=== PATIENT | male | born 1970 | race Caucasian/White ===

== ENCOUNTER 2017-05-01 16:50 | Emergency (ER) | payer SELFPAY ==
--- NOTE | 2017-05-01 17:26 | RAD ---
RADIOGRAPH CHEST 2 VIEWS: HISTORY: 47-year-old male with hypertension and cough. FINDINGS: There is no air space density, pulmonary edema, pleural effusion, pneumothorax, or cardiomegaly. IMPRESSION: No acute cardiopulmonary findings. jn [] POS: [facility]
[2017-05-01 18:24] LABS: ALT (SGPT) 162 U/L (8-55); AST (SGOT) 142 U/L (5-34); Alkaline Phosphatase 107 U/L (40-150); Anion Gap 14 mmol/L (10-20); BUN (Urea Nitrogen) 11 mg/dL (8.9-20.6); Bilirubin, Total 0.7 mg/dL (0.2-1.2); Calc. Creatinine Clearance 0 mL/min (70-130); Carbon Dioxide 24 mmol/L (22-29); Chloride 96 mmol/L (98-107); Estimated GFR-MDRD 71; Globulin 3.4 g/dL (2.4-3.5); Protein, Total 7.5 g/dL (6.0-8.3)
[2017-05-01 18:35] LABS: Hematocrit 52.5 % (42.0-52.0); Mean Platelet Volume 7.3 fL (7.4-10.4); Red Blood Cell (RBC) Count 5.37 mill/uL (4.70-6.10)
[2017-05-01] MEDS ORDERED: Acetaminophen 500 MG TAB ONE (18:35)
[2017-05-01] MEDS ORDERED: Ketorolac Tromethamine 30 MG/ML VIAL ONE (18:35)
[2017-05-01 18:36] LABS: Band 14 % (5-11); Neutrophil 52 % (42-75); Reactive Lymphocytes 5 % (0-10)
== END 2017-05-01 18:59 | disposition home or self-care (01) ==
LOC: ERS 16:50
DX: J11.1 Influenza due to unidentified influenza virus with other respiratory manifestations (principal); I10 Essential (primary) hypertension
CPT/HCPCS: 36415; 71020; 80053; 85025; 96372; J1885

== ENCOUNTER 2018-04-22 10:39 | Emergency (ER) | payer SELFPAY ==
[2018-04-22] MEDS ORDERED: HYDROcodone/Acetaminophen 5/325 mg Tablet ONE (12:46)
--- NOTE | 2018-04-22 13:28 | RAD ---
2 VIEWS LEFT ANKLE: Date: 04/22/18 PROVIDED CLINICAL HISTORY: Left ankle pain status post injury. FINDINGS: There is no evidence for fracture or other acute osseous abnormality. If there is persistent clinical concern, conservative management and follow-up imaging are advised. IMPRESSION: As above. POS: OFF
--- NOTE | 2018-04-22 13:33 | RAD ---
RIGHT ANKLE 2 VIEWS: Date: 04/22/18 PROVIDED CLINICAL HISTORY: Right ankle pain status post injury. FINDINGS: There is no evidence for fracture or other acute osseous abnormality. If there is persistent clinical concern, conservative management and follow-up imaging are advised. IMPRESSION: As above. POS: OFF
== END 2018-04-22 13:11 | disposition home or self-care (01) ==
LOC: ERS 10:39
DX: S93.401A Sprain of unspecified ligament of right ankle, initial encounter (principal); S93.402A Sprain of unspecified ligament of left ankle, initial encounter; W17.89XA Other fall from one level to another, initial encounter

== ENCOUNTER 2018-08-12 19:01 | Emergency (ER) | payer SELFPAY ==
[2018-08-12] MEDS ORDERED: Bacitracin Zinc 1 Packet ONE (20:14)
== END 2018-08-12 20:20 | disposition home or self-care (01) ==
LOC: ERS 19:01
DX: S51.812A Laceration without foreign body of left forearm, initial encounter (principal); W22.8XXA Striking against or struck by other objects, initial encounter
CPT/HCPCS: 12002

== ENCOUNTER 2019-11-29 17:23 | Emergency (ER) | payer SELFPAY ==
[~2019-11-29 17:23] MED LIST: Iopamidol-370 76% 500 ML 1 ML ONE
[2019-11-29 19:06] LABS: #Basophils 0.1 thou/uL (0.0-0.2); #Lymphocytes 1.7 thou/uL (1.20-3.40); #Monocytes 0.4 thou/uL (0.11-0.59); #Neutrophils 3.1 thou/uL (1.40-6.50); %Basophils 1.1 % (0.0-1.0); %Eosinophils 0.9 % (0.0-10.0); %Lymphocytes 31.3 % (21.0-51.0); %Monocytes 7.8 % (0.0-10.0); Hemoglobin 16.1 g/dL (14.0-18.0); Mean Corpuscular HGB CONC 33.7 g/dL (32.0-36.0); Mean Corpuscular Hemoglobin 32.9 pg (27.0-31.0); Mean Corpuscular Volume 97.9 fL (78.0-98.0); Mean Platelet Volume 6.9 fL (7.4-10.4); Platelet Count 245 thou/uL (130-400); RBC Distribution Width 12.5 % (11.5-14.5); Red Blood Cell (RBC) Count 4.89 mill/uL (4.70-6.10); White Blood Cell (WBC) Count 5.3 thou/uL (4.8-10.8)
[2019-11-29 19:20] LABS: ALT (SGPT) 317 U/L (8-55); AST (SGOT) 293 U/L (5-34); Albumin 4.8 g/dL (3.5-5.0); Alcohol 347 mg/dL (Less than 10); Alkaline Phosphatase 128 U/L (40-110); Anion Gap 20 mmol/L (10-20); BUN (Urea Nitrogen) 11 mg/dL (8.9-20.6); Bilirubin, Total 0.9 mg/dL (0.2-1.2); Calc. Creatinine Clearance 0 mL/min (70-130); Calcium 9.8 mg/dL (7.8-10.44); Carbon Dioxide 23 mmol/L (22-29); Chloride 100 mmol/L (98-107); Estimated GFR-MDRD Greater than 90; Globulin 3.5 g/dL (2.4-3.5); Glucose 66 mg/dL (70-105); Lipase 24 U/L (8-78); Potassium 4.3 mmol/L (3.5-5.1); Protein, Total 8.3 g/dL (6.0-8.3); Sodium 139 mmol/L (136-145)
--- NOTE | 2019-11-29 19:28 | CT ---
CT ABDOMEN AND PELVIS PERFORMED WITH CONTRAST ENHANCEMENT: 11/29/19 HISTORY: Right flank pain radiating to right groin and testicle region. The lung bases show some atelectatic change. There are marked diffuse fatty changes of the liver which measures 16 cm. the spleen and pancreas reg ions are unremarkable. Gallbladder has been removed. Right and left adrenal glands and right and left kidneys are normal in appearance. There is no signif icant periaortic or mesenteric adenopathy. CT OF PELVIS PERFORMED WITH CONTRAST ENHANCEMENT: Minimal sigmoid diverticulosis is noted. The appendix appears unremarkable. No adenopathy or mass. No free fluid. Prostate is mildly prominent with prostatic calcifications. There are arthritic changes of the spine with marked disc narrowing at L5-S1. IMPRESSION: 1. Mild colonic diverticulosis. 2. No acute findings of the abdomen or pelvis. 3. Severe fatty change of the liver and postop cholecystectomy change. POS: [facility]
--- NOTE | 2019-11-29 19:29 | RAD ---
RIGHT HIP TWO VIEWS: 11/29/19 HISTORY: Right hip pain status post fall off of a horse. Contrast from a recent CT is present. I do not see any signs of fracture or dislocation. IMPRESSION: No evidence of fracture. POS: [facility]
--- NOTE | 2019-11-29 20:05 | ULT ---
TESTICULAR ULTRASOUND: 11/29/19 HISTORY: Right testicular pain and right groin pain. FINDINGS: Both testicles have a normal sonographic appearance. Color Doppler and spectral analysis demonstrates normal and equal blood flow to both testicles. Epididymi appear normal. No significant hydrocele. IMPRESSION: Unremarkable testicular ultrasound. POS: [facility]
[2019-11-29 21:40] LABS: Bilirubin Negative (Negative); Blood, Urine Negative (Negative); Clarity Clear (Clear); Glucose, Urine (Dipstick) Normal (Negative); Ketone, Urine 20 mg/dL (Negative); Leukocyte Negative Leu/uL (Negative); Nitrite Negative (Negative); Protein, Urine (Dipstick) 10 mg/dL (Neg-Trace); Urobilinogen Normal mg/dL (Less than 2); pH, Urine 5.5 (5.0-9.0)
[2019-11-29 21:42] LABS: Specific Gravity, Urine Greater than 1.060 (1.002-1.036)
== END 2019-11-29 21:08 | disposition home or self-care (01) ==
LOC: ERS 17:23
DX: K70.10 Alcoholic hepatitis without ascites (principal); I10 Essential (primary) hypertension; Z79.899 Other long term (current) drug therapy
CPT/HCPCS: 36415; 74177; 76870; 80053; 80307; 81003; 83690; 85025; 93976; Q9967

== ENCOUNTER 2019-12-09 20:38 | Inpatient (IN) | payer OTHER, SELFPAY ==
[2019-12-09 21:31] LABS: Hemoglobin 16.2 g/dL (14.0-18.0); Mean Corpuscular Hemoglobin 33.5 pg (27.0-31.0); Mean Corpuscular Volume 98.3 fL (78.0-98.0); Mean Platelet Volume 7.7 fL (7.4-10.4); Platelet Count 154 thou/uL (130-400); RBC Distribution Width 12.6 % (11.5-14.5); Red Blood Cell (RBC) Count 4.85 mill/uL (4.70-6.10); White Blood Cell (WBC) Count 4.9 thou/uL (4.8-10.8)
[2019-12-09] MEDS ORDERED: Lorazepam 2 MG/ML VIAL ONE (21:39)
[2019-12-09] MEDS ORDERED: Magnesium 2 GM/50 ML BAG (IN WATER) ONE (21:39)
[2019-12-09 21:48] LABS: ALT (SGPT) 266 U/L (8-55); AST (SGOT) 209 U/L (5-34); Albumin 4.9 g/dL (3.5-5.0); Alkaline Phosphatase 136 U/L (40-110); Anion Gap 18 mmol/L (10-20); BUN (Urea Nitrogen) 14 mg/dL (8.9-20.6); Calc. Creatinine Clearance 0 mL/min (70-130); Calcium 11.1 mg/dL (7.8-10.44); Carbon Dioxide 25 mmol/L (22-29); Chloride 94 mmol/L (98-107); Estimated GFR-MDRD 73; Globulin 3.6 g/dL (2.4-3.5); Glucose 166 mg/dL (70-105); Lymphocytes 14 % (21-51); MDiff Complete? YES; Monocytes 7 % (0-10); Neutrophil 79 % (42-75); Platelet Morphology Comment Appears Adequate; Potassium 3.4 mmol/L (3.5-5.1); Protein, Total 8.5 g/dL (6.0-8.3); RBC Morphology Normal; Sodium 134 mmol/L (136-145)
--- NOTE | 2019-12-09 21:57 | CT ---
CT HEAD WITHOUT CONTRAST: 12/09/19 INDICATIONS: Seizures. Ventricles have normal size and position. No evidence of intracranial mass, hemorrhage, or infarct. S inuses and mastoids are clear. IMPRESSION: No acute process. POS: [facility]
[2019-12-09 21:58] LABS: Alcohol Less than 10 mg/dL (Less than 10); Magnesium 1.7 mg/dL (1.6-2.6)
[2019-12-09] MEDS ORDERED: hydrALAZINE 20 MG/ML VIAL SLOW IVP PRN (23:24)
[2019-12-09] MEDS ORDERED: Lorazepam 2 MG/ML VIAL SLOW IVP PRN (23:24)
[2019-12-09] MEDS ORDERED: Ondansetron PF 4 MG/2 ML Vial IVP PRN (23:24)
[2019-12-09] MEDS ORDERED: Labetalol HCl 100 MG/20 ML VIAL SLOW IVP PRN (23:24)
[2019-12-09] MEDS ORDERED: Acetaminophen 500 MG TAB PO PRN (23:24)
[2019-12-09] MEDS ORDERED: Ondansetron ODT 4 MG TAB PO PRN (23:24)
[2019-12-09] MEDS ORDERED: Diazepam 5 MG TAB PO PRN (23:33)
[2019-12-09] MEDS ORDERED: Diazepam 5 MG TAB PO SCH (23:59)
[2019-12-09] MEDS ORDERED: Potassium Chloride 20 MEQ TAB PO SCH (23:59)
[2019-12-09] MEDS ORDERED: Thiamine HCl 200 MG/2 ML VIAL IM SCH (23:59)
[2019-12-10 00:41] LABS: Lactic Acid 1.1 mmol/L (0.5-2.2)
--- NOTE | 2019-12-10 01:39 | HP ---
PRIMARY CARE PROVIDER: Dr. Paxton Abernathy. CHIEF COMPLAINT: Seizure activity. HISTORY OF PRESENT ILLNESS: This is a 49-year-old male, who presents to [facility] Emergency Department after apparently sustaining seizure-like activity while assisting his son work on a hand spray operator. The history is obtained after discussions with the patient as well as the emergency room attending and review of the electronic medical record. The patient states he has no specific recollection and no premonition or aura prior to the event. The patient apparently was working with his son outside when he fell over next to a vehicle and began having seizure-like activity. The patient was apparently not breathing well and the son started CPR with successful return of consciousness. The patient was held back inside his son's home and EMS was notified. The patient does have a significant history of alcohol abuse. Recently evaluated at [facility] Emergency Room on 11/30/2019, diagnosed with alcoholic hepatitis. The patient states his last drink was within the last week, but has noted some shaking of his hands. The patient denies any new medication exposure and states he takes lisinopril for high blood pressure. In the emergency room, the patient underwent general evaluation including CT of the brain showing no acute process. The patient received magnesium sulfate, lorazepam, and intravenous normal saline x1 L. The patient states he feels back to baseline without specific chest pain, shortness of breath, fever, chills, or dysuria. Last oral intake was approximately 12 hours prior to this evaluation. PAST MEDICAL HISTORY: 1. Hypertension. 2. Gastroesophageal reflux. 3. Alcohol abuse. 4. Alcohol-induced hepatitis. 5. History of epididymitis. PAST SURGICAL HISTORY: Status post laparoscopic cholecystectomy. CURRENT MEDICATIONS: Lisinopril 5 mg p.o. daily. ALLERGIES: NO KNOWN DRUG ALLERGIES. FAMILY HISTORY: No inheritable disease per patient's report. SOCIAL HISTORY: Resides in [place], [place]. Works as a rancher. . Drinks greater than 5 beers per day. No tobacco or illicit drug use. Functional of all activities of daily living. REVIEW OF SYSTEMS: CONSTITUTIONAL: Negative for weight loss or gain, ability to conduct usual activities. SKIN: Negative for rash, itching. EYES: Negative for double vision, pain. ENT/MOUTH: Negative for nose bleeding, neck stiffness, pain, tenderness. CARDIOVASCULAR: Negative for palpitations, dyspnea on exertion, orthopnea. RESPIRATORY: Negative for shortness of breath, wheezing, cough, hemoptysis, fever or night sweats. GASTROINTESTINAL: Negative for poor appetite, abdominal pain, heartburn, nausea, vomiting, constipation, or diarrhea. GENITOURINARY: Negative for urgency, frequency, dysuria, nocturia. MUSCULOSKELETAL: Negative for pain, swelling. NEUROLOGIC/PSYCHIATRIC: Negative for anxiety, depression. ALLERGY/IMMUNOLOGIC: Negative for skin rash, bleeding tendency. Otherwise negative except as stated per HPI. PHYSICAL EXAMINATION: VITAL SIGNS: On admission, blood pressure 140/87, pulse 109, respiratory rate 20, temperature 97.9 degrees Fahrenheit, height O2 saturation 98% on room air. GENERAL APPEARANCE: This is a 49-year-old male, alert and oriented x3, pleasant, responsive, in no acute distress. HEENT: Pupils are equal, round, reactive to light and accommodation. Extraocular muscles are intact. No scleral icterus. No conjunctival injection. Nares patent. OP is clear. Oral mucosa dry. Buccal and the lingual lacerations noted in the oral cavity. NECK: Supple. No cervical adenopathy. No thyromegaly. No carotid bruits. No JVD appreciated. Cervical spine with full active and passive range of motion. No meningeal signs noted. CHEST: Lungs are clear to auscultation bilaterally. CARDIOVASCULAR EXAM: S1, S2 without noted murmur, rub, or gallop. ABDOMEN: Rounded, soft, nontender, and nondistended. Bowel sounds are positive in all 4 quadrants. There is no hepatosplenomegaly. No abdominal bruits. No rebound or guarding appreciated. EXTREMITIES: Warm and dry with fair turgor. No clubbing, cyanosis, or asymmetric edema appreciated. Pulses palpable distally at the dorsalis pedis, posterior tibial, and popliteal arteries bilaterally. Capillary refill less than 2 seconds. NEUROLOGIC: Mild tremor noted at rest. Alert and oriented x3. Cranial nerves II through XII are grossly intact. PERTINENT LABORATORY AND X-RAY FINDINGS: Sodium 134, potassium 3.4, chloride 94, CO2 of 25, BUN 14, creatinine 1.08, estimated GFR 73, glucose 166, lactic acid level 4.2, calcium 11.1, magnesium 1.7, total bilirubin 2.0, AST 209, ALT 266, alkaline phosphatase 136. Troponin I negative x1. CBC showed a white blood cell count of 4.9, hemoglobin 16, hematocrit 48, MCV 98, platelet count 154 with 79% neutrophils. Plasma alcohol level less than 10. CT of the brain without contrast dated 12/09/2019, showed no acute intracranial process. EKG dated 12/09/2019, by my interpretation shows sinus mechanism with heart rates in the 90s to low 100s. Normal R-wave progression noted in the precordial leads. Normal axis. No acute ST-T wave changes appreciated. ASSESSMENT AND PLAN: 1. Alcohol withdrawal seizure. The patient will be admitted to the Stroke Unit. We will continue ASC protocol. Ativan 1 mg IV q.4 hours as needed for seizure-like activity, anxiety, or withdrawal symptoms. Consult Neurology Service for any further recommendations. 2. Alcohol abuse. We will offer to rule out. We will offer alcohol cessation resources. ASC protocol. Banana bag IV at 125 mL/h daily. Add folate 1 mg daily and thiamine 100 mg p.o. daily. 3. Lactic acidosis. Suspect secondarily to #1. We will continue IV fluids and repeat serial lactic acid. 4. Hypokalemia. Potassium chloride supplementation at 40 mEq p.o. x1 now with 40 mEq p.o. b.i.d. Repeat potassium level in the a.m. 5. Hypercalcemia. Suspect secondary to dehydration. Continue IV fluids and repeat calcium level in the a.m. 6. Alcohol-induced hepatitis. Serial LFT monitoring. 7. Hypertension. Resume home regimen of lisinopril 5 mg p.o. daily. 8. Prophylaxis. SCDs while in bed. Pepcid 20 mg p.o. b.i.d. General seizure precautions. 9. Code status is full. Surrogate medical decision maker is the patient's spouse. Job ID: [id number]
[2019-12-10 02:42] VITALS: BMI 22.4
[2019-12-10] MEDS ORDERED: Acetaminophen 325 MG TAB PO PRN (02:46)
[2019-12-10] MEDS: Multivitamins, Adult 10 ML, Folic Acid 1 MG, Thiamine HCl 100 MG in Dextrose 5 %-0.45 %... IV SCH (03:06)
[2019-12-10] MEDS ORDERED: Diazepam 5 MG TAB PO PRN (04:00)
[2019-12-10 04:38] LABS: #Lymphocytes 1.2 thou/uL (1.20-3.40); #Monocytes 0.5 thou/uL (0.11-0.59); #Neutrophils 3.3 thou/uL (1.40-6.50); %Basophils 0.6 % (0.0-1.0); %Eosinophils 0.8 % (0.0-10.0); %Lymphocytes 23.2 % (21.0-51.0); %Monocytes 9.5 % (0.0-10.0); %Neutrophils 65.8 % (42.0-75.0); Mean Corpuscular HGB CONC 32.6 g/dL (32.0-36.0); Mean Corpuscular Volume 98.1 fL (78.0-98.0); Mean Platelet Volume 8.1 fL (7.4-10.4); Platelet Count 159 thou/uL (130-400); RBC Distribution Width 12.7 % (11.5-14.5); Red Blood Cell (RBC) Count 4.38 mill/uL (4.70-6.10)
[2019-12-10 04:58] LABS: Lactic Acid 0.9 mmol/L (0.5-2.2)
[2019-12-10 05:02] LABS: ALT (SGPT) 233 U/L (8-55); AST (SGOT) 210 U/L (5-34); Albumin 4.3 g/dL (3.5-5.0); Alkaline Phosphatase 116 U/L (40-110); Anion Gap 12 mmol/L (10-20); BUN (Urea Nitrogen) 14 mg/dL (8.9-20.6); Bilirubin, Total 1.8 mg/dL (0.2-1.2); Calc. Creatinine Clearance 134 mL/min (70-130); Carbon Dioxide 29 mmol/L (22-29); Chloride 96 mmol/L (98-107); Estimated GFR-MDRD Greater than 90; Globulin 3.2 g/dL (2.4-3.5); Glucose 106 mg/dL (70-105); Potassium 3.5 mmol/L (3.5-5.1); Protein, Total 7.5 g/dL (6.0-8.3); Sodium 133 mmol/L (136-145)
[2019-12-10] MEDS: Potassium Chloride 20 MEQ TAB PO SCH ×2 (07:32→16:29)
[2019-12-10] MEDS: Folic Acid 1 MG TAB PO SCH (07:33)
[2019-12-10] MEDS: Multivitamin W/ Minerals 1 TAB PO SCH (07:33)
[2019-12-10] MEDS: Famotidine 20 MG TAB PO SCH ×2 (07:33→20:52)
[2019-12-10] MEDS: Thiamine 100 MG TAB PO SCH (07:33)
[2019-12-10] MEDS: Magnesium Oxide 400 MG TAB PO SCH (07:33)
[2019-12-10] MEDS ORDERED: Folic Acid 1 MG TAB PO SCH (09:00)
[2019-12-10] MEDS ORDERED: Thiamine 100 MG TAB PO SCH (09:00)
--- NOTE | 2019-12-10 13:36 | CON ---
DATE OF CONSULTATION: 12/10/2019 REASON FOR CONSULTATION: New-onset seizure secondary to alcohol abuse. HISTORY OF PRESENT ILLNESS: Mr. Olguin is a 49-year-old male, who presented with a medical history significant for hypertension, gastroesophageal reflux disease, alcohol abuse, and hepatitis, presented to the emergency room with a seizure-like activity while assisting his son on card brusher. According to the patient, he was out in the [place], helping his son, mowed the lawn. At that time, he fell over next to a vehicle and had a seizure-like activity. The son started CPR and called the EMS. Per the patient, he used to drink heavily, but stopped drinking a week ago because he was diagnosed with alcoholic hepatitis on 11/30/2019. In the emergency room, head CT was done, which did not reveal any acute intracranial process. He was given magnesium sulfate, lorazepam, and intravenous saline. Currently, the patient is back to his baseline. The patient denies nausea, vomiting, headache, chest pain, abdominal pain, focal weakness, focal paresthesias, vertigo, dizziness, loss of vision, loss of consciousness, vertigo associated with the episode. He denies previous history of seizures or family history of seizures. He denies meningitis, encephalitis, or history of head trauma. REVIEW OF SYSTEMS: All 10 systems were reviewed and were negative except the pertinent positives and negatives mentioned in the HPI. PAST MEDICAL HISTORY: 1. Hypertension. 2. Gastroesophageal reflux disease. 3. Alcohol abuse. 4. Alcohol-induced hepatitis. 5. Epididymitis. PAST SURGICAL HISTORY: Status post laparoscopic cholecystectomy. HOME MEDICATIONS: Lisinopril 5 mg p.o. daily. ALLERGIES: PCN FAMILY HISTORY: No family history of epilepsy. SOCIAL HISTORY: The patient lives in [place], [place]. 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 He quit smoking a week ago. Denies alcohol or illegal drug use. PHYSICAL EXAMINATION: VITAL SIGNS: Blood pressure 140/80, pulse 80, respiratory rate 18. CVS: Regular rate and rhythm. CHEST: Clear. ABDOMEN: Soft. NECK: Supple. NEUROLOGICAL: Mental status; the patient is alert and oriented to person, place , and time. Speech is clear. Fund of knowledge is appropriate. Recent and remote memory intact. Cranial nerves 2 through 12 intact. Motor; muscle tone and bulk are normal. Strength 5/5 bilaterally. Sensory intact. Cerebellar, finger-nose testing intact. Gait deferred due to the patient's safety reasons. DATA REVIEWED: I reviewed the labs, which were significant for hyponatremia of 134. Head CT was unremarkable. ASSESSMENT AND PLAN: Mr. Olguin is a 49-year-old male with history of alcohol abuse and hypertension, presented with seizure-like activity after he quit alcohol for a week, most likely alcohol-abuse seizure. Ativan 1 mg IV for seizure greater than 2 minutes. Consider CIWA protocol. Observe seizure precautions. Neuro checks every 4 hours. Telemetry. Continue home medications. Continue medical management per primary team. Plan discussed in detail with the patient. Thank you for the consult. Job ID: [id number] [facility]ITAL[facility]
[2019-12-10 14:14] LABS: SARS-CoV-2 MS2 Positive; SARS-CoV-2 N Gene Negative; SARS-CoV-2 S Gene Negative; SARS-CoV-2 by NAA Not Detected (NotDetected); SARS-CoV-2 orf1ab Negative
--- NOTE | 2019-12-10 16:03 | PDOC.HOSPP ---
- Subjective Encounter Date: 12/10/19 Encounter Time: 11:15 Subjective: pt up in bed no complains - Objective Vital Signs & Weight: Vital Signs (12 hours) Temp Pulse Resp BP BP Pulse Ox 12/10/19 12:00 98.7 F 87 18 132/85 132/85 96 12/10/19 07:30 98.1 F 92 18 133/98 H 133/98 H 96 12/10/19 04:06 99 F 101 H 16 144/96 H 97 Weight Weight 189 lb 4 oz I&O: 12/09/19 12/10/19 12/11/19 06:59 06:59 06:59 Intake Total 480 Balance 480 Result Diagrams: 12/10/19 03:51 12/10/19 03:51 Hospitalist ROS - Review of Systems Respiratory: denies: cough, dry, shortness of breath, hemoptysis, SOB with excertion, pleuritic pain, sputum, wheezing, other Cardiovascular: denies: chest pain, palpitations, orthopnea, paroxysmal noc. dyspnea, edema, light headedness, other Gastrointestinal: denies: nausea, vomiting, abdominal pain, diarrhea, constipation, melena, hematochezia, other - Medication Medications: Active Medications Generic Name Dose Route Start Last Admin Trade Name Freq PRN Reason Stop Dose Admin Famotidine 20 mg 12/10/19 09:00 12/10/19 07:33 Pepcid PO 20 mg BID MAINE Administration Folic Acid 1 mg 12/10/19 09:00 12/10/19 07:33 Folvite PO 1 mg DAILY MAINE Administration Multivitamins 10 ml/ Folic 1,011.2 mls @ 125 mls/hr 12/10/19 01:00 12/10/19 03:06 Acid 1 mg/ Thiamine HCl 100 mg IV 1,011.2 mls / Dextrose/Sodium Chloride Q24HR MAINE Administration Iron/Minerals/Multivitamins 1 tab 12/10/19 09:00 12/10/19 07:33 Theragran M PO 1 tab DAILY MAINE Administration Magnesium Oxide 400 mg 12/10/19 09:00 12/10/19 07:33 Magnesium Oxide PO 400 mg DAILY MAINE Administration Potassium Chloride 40 meq 12/10/19 08:00 12/10/19 07:32 K-Dur PO 40 meq BID-WM MAINE Administration Sodium Chloride 10 ml 12/10/19 09:00 12/10/19 07:33 Flush - Normal Saline IVF Not Given Q12HR MAINE Thiamine HCl 100 mg 12/10/19 09:00 12/10/19 07:33 Thiamine PO 100 mg DAILY MAINE Administration - Exam Neck: negative: supple, symmetric, no JVD, no thyromegaly, no lymphadenopathy, no carotid bruit, JVD Heart: negative: RRR, no murmur, no gallops, no rubs, normal peripheral pulses, irregular, diminshed peripheral pulses, murmur present, II/IV, III/IV Respiratory: negative: CTAB, no wheezes, no rales, no ronchi, normal chest expansion, no tachypnea, normal percussion, rales, rhonchi, tachypneic, wheezes Gastrointestinal: negative: soft, non-tender, non-distended, normal bowel sounds , no palpable masses, no hepatomegaly, no splenomegaly, no bruit, no guarding, no rigidity, tender to palpation, distended, diminished bowl sounds, voluntary guarding Hosp A/P (1) Seizure Code(s): R56.9 - UNSPECIFIED CONVULSIONS Status: Acute (2) Alcohol abuse Code(s): F10.10 - ALCOHOL ABUSE, UNCOMPLICATED Status: Acute (3) Elevated LFTs Code(s): R79.89 - OTHER SPECIFIED ABNORMAL FINDINGS OF BLOOD CHEMISTRY Status : Acute - Plan pt stopped drinking a week ago and had a seizure which is consistent with alcohol withdrawal. will monitor for 24hr. appreciate neurology input.
[2019-12-11] MEDS: Multivitamins, Adult 10 ML, Folic Acid 1 MG, Thiamine HCl 100 MG in Dextrose 5 %-0.45 %... IV SCH (00:29)
[2019-12-11 08:19] VITALS: BP 137/97; TEMP 98.4
[2019-12-11] MEDS: Potassium Chloride 20 MEQ TAB PO SCH (08:21)
[2019-12-11] MEDS: Famotidine 20 MG TAB PO SCH (08:22)
[2019-12-11] MEDS: Folic Acid 1 MG TAB PO SCH (08:23)
[2019-12-11] MEDS: Multivitamin W/ Minerals 1 TAB PO SCH (08:23)
[2019-12-11] MEDS: Thiamine 100 MG TAB PO SCH (08:23)
[2019-12-11] MEDS: Magnesium Oxide 400 MG TAB PO SCH (08:23)
[2019-12-11] MEDS ORDERED: Lisinopril 5 MG TAB PO SCH (09:00)
--- NOTE | 2019-12-11 14:10 | DIS ---
DATE OF ADMISSION: 12/09/2019 DATE OF DISCHARGE: 12/11/2019 The patient left against medical advice on 12/10. DISCHARGE DIAGNOSES: 1. Alcohol withdrawal seizure. 2. Alcohol abuse. 3. Elevated LFTs with bilirubin. HOSPITAL COURSE: The patient is a 49-year-old male, who initially presented to the hospital after having a seizure. He was seen by Neurology, recommended to watch him for seizures; however, at this time, the patient did not have any seizures while he was here. The patient wanted to leave against medical advice. At this time, he signed out AMA and he left. The patient was explained the risk of seizure and also his LFTs being elevated and he will require followup as an outpatient. However, he stated that he wanted to go back home. His ride was here. His medications will just be what he is at home, which is lisinopril and I did not see this patient on the discharge date. Job ID: [id number]
--- NOTE | 2019-12-12 05:43 | PQF ---
CLINICAL DOCUMENTATION CLARIFICATION FORM: Dear : Leslie Palma Date / Time: 12/12/2019 05:41 Please exercise your independent, professional judgment in responding to the clarification form. Clinical indicators are provided on the bottom of this form for your review Can you please clarify the status of patients alcohol abuse? Please check appropriate box(es): [x ] Alcohol dependence with withdrawal [ ] Alcohol abuse only [ ] Other diagnosis [ ] Unable to determine Physician Signature: Date/Time: For continuity of documentation, please document condition throughout progress notes and discharge summary. Thank You. To be completed by CDI/Coding staff for physician review: Present Clinical Indicators - Signs / Symptoms / Labs Results and Location in Medical Record [x] Alcoholic withdrawal seizure HP 12/08 [x] possible seizure activity ED Note 12/08 [x] Alcohol abuse HP 12/08 [x] he has some generalized jerking movement ED Note 12/08 [x] noted some shaking of his hands HP 12/08 [x] Alcohol blood level: less than 10 Collected 12/08 Present Risk Factors Results and Location in Medical Record [x] 49 years old male HP 12/08 [x] Alcoholic hepatitis HP 12/08 [x] HTN HP 12/08 [x] Hyperkalemia HP 12/08 Present Treatments Results and Location in Medical Record [x] Brain CT Collected 12/08 [x] IVF HP 12/08 [x] Neurology consult 12/08 Consult [x] CIWA protocol HP 12/08 [x] Thiamine 100mg Oral MAR 12/09 CDS/Sales Representative Publications Signature:Jeanne Pisano Phone #: [facility] [phone] Date/Time: 12/12/19 05:41 This is a permanent part of the Medical Record [facility]
== END 2019-12-11 09:29 | disposition left against medical advice (07) | DRG 894 ==
LOC: ERS 20:38 → 2NO 22:46
PROVIDERS: ADMIT Family Medicine; ATTEND Family Medicine
PROC: HZ2ZZZZ Detoxification Services for Substance Abuse Treatment (ICD-10-PCS; principal; 2019-12-10)
DX: F10.239 Alcohol dependence with withdrawal, unspecified (principal); E87.2 Acidosis; E87.1 Hypo-osmolality and hyponatremia; K70.10 Alcoholic hepatitis without ascites; K21.9 Gastro-esophageal reflux disease without esophagitis; I10 Essential (primary) hypertension; E87.6 Hypokalemia; E83.52 Hypercalcemia; Z90.49 Acquired absence of other specified parts of digestive tract; Z88.0 Allergy status to penicillin; Z79.899 Other long term (current) drug therapy
CPT/HCPCS: 36415; 36416; 70450; 80053; 80307; 82607; 82746; 83605; 83735; 84484; 85025; 87635; 93005; 96365; 96375; J2060; J3411; J3475; J7042; U0003

== ENCOUNTER 2020-06-25 13:50 | Emergency (ER) | payer SELFPAY ==
--- NOTE | 2020-06-25 14:39 | RAD ---
RIGHT ANKLE 3 VIEWS: Date: 06/25/2020 HISTORY: Injury with pain. FINDINGS: Mild soft tissue swelling. No evidence of fracture identified. IMPRESSION: No acute findings. POS: [facility]
--- NOTE | 2020-06-25 14:41 | RAD ---
EXAM: 4 views of the right knee HISTORY: Knee pain after being hit by a cow COMPARISON: None FINDINGS: No knee effusion is seen. There is a fracture of the fibular neck. No tibial fracture or fe mur fracture are seen. No significant degenerative changes are seen. Mild diffuse soft tissue swelling is present. IMPRESSION: Right fibular neck fracture
--- NOTE | 2020-06-25 15:04 | RAD ---
RIGHT TIBIA AND FIBULA: Date: 06/25/2020 HISTORY: Injury with pain. FINDINGS: There is a slightly displaced fracture involving the neck of the proximal fibula. Lateral view shows slightly oblique fracture with slight displacement. The tibia appears intact. IMPRESSION: Fracture proximal fibula. POS: [facility]
[2020-06-25] MEDS ORDERED: Ondansetron PF 4 MG/2 ML Vial ONE (15:45)
[2020-06-25] MEDS ORDERED: Morphine 4 MG/ML VIAL ONE (15:45)
== END 2020-06-25 17:45 | disposition home or self-care (01) ==
LOC: ERS 13:50
DX: S82.831A Other fracture of upper and lower end of right fibula, initial encounter for closed fracture (principal); I10 Essential (primary) hypertension; Z79.899 Other long term (current) drug therapy; W55.22XA Struck by cow, initial encounter
CPT/HCPCS: 96372; J2270; J2405

== ENCOUNTER 2020-07-28 01:21 | Inpatient (IN) | payer SELFPAY ==
[2020-07-28] MEDS ORDERED: Multivitamins, Adult 10 ML, Thiamine HCl 100 MG, Folic Acid 1 MG in Dextrose 5 %-0.45 %... IV SCH (02:15)
[2020-07-28] MEDS ORDERED: Lorazepam 2 MG/ML VIAL ONE ×2 (02:15→03:24)
[2020-07-28 02:24] LABS: #Lymphocytes 0.5 thou/uL (1.20-3.40); #Monocytes 0.3 thou/uL (0.11-0.59); #Neutrophils 3.5 thou/uL (1.40-6.50); %Basophils 0.3 % (0.0-1.0); %Eosinophils 0.3 % (0.0-10.0); %Lymphocytes 11.5 % (21.0-51.0); %Monocytes 6.5 % (0.0-10.0); %Neutrophils 81.4 % (42.0-75.0); Hemoglobin 14.7 g/dL (14.0-18.0); Mean Corpuscular HGB CONC 35.1 g/dL (32.0-36.0); Mean Corpuscular Hemoglobin 34.5 pg (27.0-31.0); Mean Corpuscular Volume 98.4 fL (78.0-98.0); Mean Platelet Volume 7.6 fL (7.4-10.4); Platelet Count 120 thou/uL (130-400); RBC Distribution Width 12.1 % (11.5-14.5); Red Blood Cell (RBC) Count 4.25 mill/uL (4.70-6.10); White Blood Cell (WBC) Count 4.3 thou/uL (4.8-10.8)
[2020-07-28 02:42] LABS: Acetaminophen Less than 6.0 mcg/mL (10.0-30.0); Alcohol Less than 10 mg/dL (Less than 10); Salicylate Less than 8.0 mg/dL (15.0-30.0)
[2020-07-28 02:44] LABS: ALT (SGPT) 130 U/L (8-55); AST (SGOT) 178 U/L (5-34); Albumin 4.4 g/dL (3.5-5.0); Alkaline Phosphatase 132 U/L (40-110); Anion Gap 21 mmol/L (10-20); BUN (Urea Nitrogen) 10 mg/dL (8.9-20.6); Bilirubin, Total 2.2 mg/dL (0.2-1.2); Calc. Creatinine Clearance 0 mL/min (70-130); Carbon Dioxide 23 mmol/L (22-29); Chloride 92 mmol/L (98-107); Globulin 3.5 g/dL (2.4-3.5); Glucose 116 mg/dL (70-105); Potassium 3.9 mmol/L (3.5-5.1); Protein, Total 7.9 g/dL (6.0-8.3); Sodium 132 mmol/L (136-145)
[2020-07-28 05:42] VITALS: BMI 20.8
[2020-07-28] MEDS ORDERED: Ondansetron PF 4 MG/2 ML Vial IVP PRN (08:19)
[2020-07-28] MEDS ORDERED: Lorazepam 2 MG/ML VIAL SLOW IVP PRN (08:19)
[2020-07-28] MEDS ORDERED: Ondansetron ODT 4 MG TAB PO PRN (08:19)
[2020-07-28] MEDS ORDERED: Acetaminophen 325 MG TAB PO PRN (08:19)
[2020-07-28] MEDS ORDERED: Acetaminophen 500 MG TAB PO PRN (08:51)
[2020-07-28 10:06] LABS: Thyroid Stimulating Hormone 1.4526 uIU/mL (0.35-4.94)
[2020-07-28 10:45] LABS: Amphetamine Not Detected (NotDetected); Barbiturates Screen Not Detected (NotDetected); Benzodiazepine Screen Detected (NotDetected); Cocaine Metabolite Screen Not Detected (NotDetected); Medtox Control Line Valid? VALID (VALID); Medtox Reader # READER 4; Methadone Not Detected (NotDetected); Methamphetamine Not Detected (NotDetected); Opiate Screen Not Detected (NotDetected); Oxycodone Screen Not Detected (NotDetected); Phencyclidine (PCP) Not Detected (NotDetected); THC/Cannabinoid Screen Not Detected (NotDetected); Tricyclic Screen Not Detected (NotDetected)
[2020-07-28] MEDS: Sodium Chloride 0.9% 1,000 ML IV SCH ×2 (11:56→23:50)
[2020-07-28] MEDS ORDERED: Thiamine HCl 200 MG/2 ML VIAL IM SCH (18:15)
[2020-07-28 18:34] LABS: Syphilis Antibody Nonreactive (Nonreactive); Syphilis Antibody Index 0.12 S/CO (<1.00 Non-Reactive)
[2020-07-28] MEDS ORDERED: Diazepam 5 MG TAB PO PRN (22:00)
[2020-07-29 05:19] LABS: Anion Gap 15 mmol/L (10-20); BUN (Urea Nitrogen) 6 mg/dL (8.9-20.6); Calc. Creatinine Clearance 140 mL/min (70-130); Calcium 9.3 mg/dL (7.8-10.44); Carbon Dioxide 23 mmol/L (22-29); Chloride 96 mmol/L (98-107); Glucose 82 mg/dL (70-105); Potassium 3.8 mmol/L (3.5-5.1); Sodium 130 mmol/L (136-145)
[2020-07-29 06:34] LABS: HBCM Index 0.11 S/CO (0-0.79); HBSAg Index 0.22 S/CO (0-0.99); Hep A IgM AB Non-Reactive (NonReactive); Hep A IgM S/CO 0.12 S/CO (0-0.79); Hep B Surf Ag Non-Reactive S/CO (NonReactive); Hep C IgG Ab Non-Reactive (NonReactive); Hep C Index 0.08 S/CO (0-0.79); Hepatitis B Core IgM Abs Non-Reactive (NonReactive)
[2020-07-29 06:48] LABS: #Eosinphils 0.1 thou/uL (0.0-0.7); #Monocytes 0.4 thou/uL (0.11-0.59); #Neutrophils 2.9 thou/uL (1.40-6.50); %Basophils 0.2 % (0.0-1.0); %Eosinophils 1.3 % (0.0-10.0); %Monocytes 8.7 % (0.0-10.0); %Neutrophils 66.8 % (42.0-75.0); Mean Corpuscular HGB CONC 34.9 g/dL (32.0-36.0); Mean Corpuscular Hemoglobin 34.9 pg (27.0-31.0); Mean Platelet Volume 8.7 fL (7.4-10.4); Platelet Count 83 thou/uL (130-400); Platelet Morphology Comment Appears Decreased; RBC Distribution Width 11.8 % (11.5-14.5); White Blood Cell (WBC) Count 4.4 thou/uL (4.8-10.8)
[2020-07-29] MEDS ORDERED: GUAIFENESIN SF SOLN 200 MG/10 ML UDCUP PO PRN (08:14)
[2020-07-29] MEDS ORDERED: Zolpidem Tartrate 5 MG TAB PO PRN (08:14)
[2020-07-29] MEDS ORDERED: Senokot S 8.6-50 MG TAB PO PRN (08:14)
[2020-07-29] MEDS ORDERED: Loratadine 10 MG TAB PO PRN (08:14)
[2020-07-29] MEDS ORDERED: Cepastat Lozenges 1 LOZ PO PRN (08:14)
[2020-07-29] MEDS ORDERED: hydrALAZINE 20 MG/ML VIAL SLOW IVP PRN (08:14)
[2020-07-29] MEDS ORDERED: Loperamide HCl 2 MG CAP PO PRN (08:14)
[2020-07-29] MEDS ORDERED: Sodium Chloride 0.65% Nasal 44 ML BOT EA NARE PRN (08:14)
[2020-07-29] MEDS ORDERED: Calcium Carbonate 500 MG ChewTAB PO PRN (08:14)
[2020-07-29] MEDS ORDERED: Bisacodyl 5 MG TAB PO PRN (08:14)
[2020-07-29] MEDS ORDERED: clonazePAM 1 MG TAB PO PRN (08:15)
[2020-07-29] MEDS: Diazepam 5 MG TAB PO PRN ×2 (08:34→12:48)
[2020-07-29] MEDS ORDERED: Thiamine 100 MG TAB PO SCH (09:00)
[2020-07-29] MEDS ORDERED: Lisinopril 5 MG TAB PO SCH (09:00)
[2020-07-29] MEDS ORDERED: Multivitamin W/ Minerals 1 TAB PO SCH (09:00)
[2020-07-29] MEDS ORDERED: Folic Acid 1 MG TAB PO SCH (09:00)
[2020-07-29] MEDS ORDERED: Pantoprazole 40 MG VIAL IVP SCH (09:00)
[2020-07-29] MEDS ORDERED: Magnesium Oxide 400 MG TAB PO SCH (09:00)
[2020-07-29] MEDS ORDERED: PROPOFOL 200 MG/20 ML VIAL ONE (10:55)
[2020-07-29] MEDS ORDERED: Multivitamins, Adult 10 ML, Folic Acid 1 MG, Thiamine HCl 100 MG in Dextrose 5 %-0.45 %... IV SCH (12:00)
[2020-07-29 15:58] VITALS: BP 147/68; TEMP 98.2
== END 2020-07-29 14:00 | disposition left against medical advice (07) | DRG 894 ==
LOC: ERS 01:21 → 2NO 05:36
PROVIDERS: ADMIT Internal Medicine; ATTEND Internal Medicine
PROC: HZ2ZZZZ Detoxification Services for Substance Abuse Treatment (ICD-10-PCS; 2020-07-28)
PROC: 0DJ08ZZ Inspection of Upper Intestinal Tract, Via Natural or Artificial Opening Endoscopic (ICD-10-PCS; principal; 2020-07-29)
DX: F10.139 Alcohol abuse with withdrawal, unspecified (principal); E87.1 Hypo-osmolality and hyponatremia; K92.0 Hematemesis; R56.9 Unspecified convulsions; I10 Essential (primary) hypertension; D69.6 Thrombocytopenia, unspecified; D53.9 Nutritional anemia, unspecified; K70.0 Alcoholic fatty liver; F41.9 Anxiety disorder, unspecified; Y90.0 Blood alcohol level of less than 20 mg/100 ml; Z88.0 Allergy status to penicillin; Z90.49 Acquired absence of other specified parts of digestive tract
CPT/HCPCS: 36415; 70450; 76705; 80048; 80053; 80074; 80306; 80307; 82607; 82746; 83735; 84443; 85025; 86780; 93005; 93010; 95712; 95819; 95957; 96365; 96366; 96375; 96376; J2060; J2704; J3411; J3475; J3490; J7042

== ENCOUNTER 2021-03-09 08:57 | Inpatient (IN) | payer SELFPAY ==
[2021-03-09] MEDS ORDERED: Acetaminophen 500 MG TAB ONE (09:20)
[2021-03-09] MEDS ORDERED: Cefepime 2 GM VIAL ONE (09:41)
[2021-03-09 10:00] LABS: Prothrombin Time 12.9 sec (12.0-14.7)
[2021-03-09 10:02] LABS: ALT (SGPT) 106 U/L (8-55); AST (SGOT) 152 U/L (5-34); Alkaline Phosphatase 192 U/L (40-110); BUN (Urea Nitrogen) 17 mg/dL (8.9-20.6); Bilirubin, Total 4.3 mg/dL (0.2-1.2); Calc. Creatinine Clearance 0 mL/min (70-130); Calcium 10.1 mg/dL (7.8-10.44); Chloride 89 mmol/L (98-107); Globulin 4.1 g/dL (2.4-3.5); Glucose 147 mg/dL (70-105); Potassium 4.4 mmol/L (3.5-5.1); Protein, Total 9.1 g/dL (6.0-8.3); Sodium 137 mmol/L (136-145)
[2021-03-09 10:04] LABS: PTT 20.1 sec (22.9-36.1)
[2021-03-09 10:05] LABS: Carbon Dioxide Less than 8 mmol/L (22-29)
[2021-03-09 10:11] LABS: Band 20 % (5-11); Hemoglobin 15.9 g/dL (14.0-18.0); Lymphocytes 11 % (21-51); MDiff Complete? YES; Mean Corpuscular HGB CONC 33.5 g/dL (32.0-36.0); Mean Corpuscular Hemoglobin 34.6 pg (27.0-31.0); Mean Platelet Volume 8.7 fL (7.4-10.4); Monocytes 3 % (0-10); Neutrophil 66 % (42-75); Platelet Count 100 thou/uL (130-400); Platelet Morphology Comment PLT clumps seen-ADEQ; RBC Distribution Width 11.9 % (11.5-14.5); Red Blood Cell (RBC) Count 4.59 mill/uL (4.70-6.10); White Blood Cell (WBC) Count 7.2 thou/uL (4.8-10.8)
[2021-03-09] MEDS ORDERED: Morphine 4 MG/ML VIAL ONE ×2 (10:43→12:59)
[2021-03-09] MEDS ORDERED: Iopamidol-370 76% 500 ML 1 ML ONE (11:05)
[2021-03-09 12:09] LABS: Bacteria/HPF None Seen HPF (None Seen); Bilirubin Negative (Negative); Blood, Urine Negative (Negative); Clarity Clear (Clear); Glucose, Urine (Dipstick) Normal (Negative); Ketone, Urine Greater than 150 mg/dL (Negative); Leukocyte Negative Leu/uL (Negative); Nitrite Negative (Negative); Protein, Urine (Dipstick) 50 mg/dL (Neg-Trace); RBC/HPF 0-3 HPF (0-3); Squamous Epithelial 0-3 HPF (0-3); Urobilinogen Normal mg/dL (Less than 2); WBC/HPF 0-3 HPF (0-3); pH, Urine 5.5 (5.0-9.0)
[2021-03-09 12:14] LABS: Amphetamine Not Detected (NotDetected); Barbiturates Screen Not Detected (NotDetected); Benzodiazepine Screen Detected (NotDetected); Cocaine Metabolite Screen Not Detected (NotDetected); Methadone Not Detected (NotDetected); Methamphetamine Not Detected (NotDetected); Opiate Screen Detected (NotDetected); Oxycodone Screen Not Detected (NotDetected); Phencyclidine (PCP) Not Detected (NotDetected); THC/Cannabinoid Screen Not Detected (NotDetected); Tricyclic Screen Not Detected (NotDetected)
[2021-03-09 12:15] LABS: Specific Gravity, Urine 1.053 (1.002-1.036)
[2021-03-09] MEDS ORDERED: Ondansetron PF 4 MG/2 ML Vial IVP PRN (12:17)
[2021-03-09] MEDS ORDERED: Senokot S 8.6-50 MG TAB PO PRN (12:17)
[2021-03-09] MEDS ORDERED: Acetaminophen 650 MG Suppository PR PRN (12:17)
[2021-03-09] MEDS ORDERED: Ondansetron ODT 4 MG TAB PO PRN (12:17)
[2021-03-09] MEDS ORDERED: Morphine 2 MG/ML VIAL SLOW IVP PRN (12:17)
[2021-03-09] MEDS ORDERED: Lorazepam 2 MG/ML VIAL SLOW IVP PRN (12:23)
[2021-03-09] MEDS ORDERED: Dextrose 50% Abboject 50 ML SYRINGE SLOW IVP PRN (12:25)
[2021-03-09] MEDS ORDERED: Dextrose 5% in Water 1,000 ML IV PRN (12:25)
[2021-03-09] MEDS ORDERED: Ondansetron PF 4 MG/2 ML Vial ONE (13:06)
[2021-03-09 13:17] LABS: #Lymphocytes 0.8 thou/uL (1.20-3.40); #Monocytes 1.1 thou/uL (0.11-0.59); #Neutrophils 9.1 thou/uL (1.40-6.50); %Basophils 0.2 % (0.0-1.0); %Eosinophils 0.1 % (0.0-10.0); %Lymphocytes 7.6 % (21.0-51.0); %Monocytes 10.2 % (0.0-10.0); Hemoglobin 13.4 g/dL (14.0-18.0); Mean Corpuscular HGB CONC 35.7 g/dL (32.0-36.0); Mean Corpuscular Hemoglobin 36.4 pg (27.0-31.0); Mean Platelet Volume 8.4 fL (7.4-10.4); Platelet Count 99 thou/uL (130-400); RBC Distribution Width 11.7 % (11.5-14.5); Red Blood Cell (RBC) Count 3.67 mill/uL (4.70-6.10); White Blood Cell (WBC) Count 11.1 thou/uL (4.8-10.8)
[2021-03-09 13:30] LABS: Magnesium 1.7 mg/dL (1.6-2.6); Phosphorus 2.1 mg/dL (2.3-4.7)
[2021-03-09] MEDS: Thiamine HCl 200 MG/2 ML VIAL SLOW IVP SCH (14:00)
[2021-03-09] MEDS: Sodium Chloride 0.9% 1,000 ML IV SCH ×2 (14:00→20:49)
[2021-03-09 14:44] LABS: SARS-CoV-2 NAA Rapid Test Not Detected (NotDetected)
[2021-03-09 16:21] VITALS: BMI 18.9
[2021-03-09] MEDS ORDERED: Vancomycin 1.5 GRAM/300 ML BAG 1.5 GM in Premix Bag 1 BAG IVPB SCH (19:15)
[2021-03-09] MEDS ORDERED: VANCOMYCIN 1.25 GM/250 ML BAG 1.25 GM in Premix Bag 1 BAG IVPB SCH (19:15)
[2021-03-09] MEDS: Pantoprazole 40 MG VIAL IVP SCH (20:49)
[2021-03-09] MEDS ORDERED: Cefepime 1 GM in Sodium Chloride 0.9% 100 ML IVPB SCH (21:00)
[2021-03-09 21:25] LABS: #Lymphocytes 1.3 thou/uL (1.20-3.40); #Monocytes 0.8 thou/uL (0.11-0.59); #Neutrophils 4.7 thou/uL (1.40-6.50); %Basophils 0.3 % (0.0-1.0); %Eosinophils 0.4 % (0.0-10.0); %Lymphocytes 19.4 % (21.0-51.0); %Monocytes 11.6 % (0.0-10.0); %Neutrophils 68.3 % (42.0-75.0); Hemoglobin 12.6 g/dL (14.0-18.0); Mean Corpuscular HGB CONC 35.9 g/dL (32.0-36.0); Mean Corpuscular Hemoglobin 36.6 pg (27.0-31.0); Mean Platelet Volume 8.1 fL (7.4-10.4); Platelet Count 77 thou/uL (130-400); RBC Distribution Width 11.8 % (11.5-14.5); Red Blood Cell (RBC) Count 3.44 mill/uL (4.70-6.10); White Blood Cell (WBC) Count 6.8 thou/uL (4.8-10.8)
[2021-03-10] MEDS: Sodium Chloride 0.9% 1,000 ML IV SCH (01:34)
[2021-03-10 05:39] LABS: #Eosinphils 0.1 thou/uL (0.0-0.7); #Lymphocytes 1.1 thou/uL (1.20-3.40); #Monocytes 0.6 thou/uL (0.11-0.59); #Neutrophils 2.8 thou/uL (1.40-6.50); %Basophils 0.5 % (0.0-1.0); %Eosinophils 1.3 % (0.0-10.0); %Monocytes 12.6 % (0.0-10.0); %Neutrophils 61.6 % (42.0-75.0); Hemoglobin 11.7 g/dL (14.0-18.0); Mean Corpuscular HGB CONC 35.8 g/dL (32.0-36.0); Mean Corpuscular Hemoglobin 36.3 pg (27.0-31.0); Mean Platelet Volume 8.4 fL (7.4-10.4); Platelet Count 72 thou/uL (130-400); RBC Distribution Width 11.8 % (11.5-14.5); Red Blood Cell (RBC) Count 3.23 mill/uL (4.70-6.10); White Blood Cell (WBC) Count 4.6 thou/uL (4.8-10.8)
[2021-03-10 06:03] LABS: ALT (SGPT) 53 U/L (8-55); AST (SGOT) 73 U/L (5-34); Albumin 3.5 g/dL (3.5-5.0); Alkaline Phosphatase 115 U/L (40-110); Anion Gap 17 mmol/L (10-20); BUN (Urea Nitrogen) 14 mg/dL (8.9-20.6); Bilirubin, Total 2.5 mg/dL (0.2-1.2); Calc. Creatinine Clearance 88 mL/min (70-130); Calcium 8.6 mg/dL (7.8-10.44); Carbon Dioxide 21 mmol/L (22-29); Chloride 100 mmol/L (98-107); Globulin 2.5 g/dL (2.4-3.5); Glucose 84 mg/dL (70-105); Lipase 275 U/L (8-78); Potassium 3.2 mmol/L (3.5-5.1); Sodium 135 mmol/L (136-145)
[2021-03-10] MEDS ORDERED: Vancomycin 1 GM in Premix Bag 1 BAG IVPB SCH (08:00)
[2021-03-10] MEDS ORDERED: Zolpidem Tartrate 5 MG TAB PO PRN (08:21)
[2021-03-10] MEDS ORDERED: Hydrocerin (Eucerin) Cream 120 gm Jar TOP PRN (08:21)
[2021-03-10] MEDS ORDERED: Loratadine 10 MG TAB PO PRN (08:21)
[2021-03-10] MEDS ORDERED: HYDROcodone/Acetaminophen 5/325 mg Tablet PO PRN (08:21)
[2021-03-10] MEDS ORDERED: Cepastat Lozenges 1 LOZ PO PRN (08:21)
[2021-03-10] MEDS ORDERED: Calcium Carbonate 500 MG ChewTAB PO PRN (08:21)
[2021-03-10] MEDS ORDERED: Loperamide HCl 2 MG CAP PO PRN (08:21)
[2021-03-10] MEDS ORDERED: Artificial Tear Sol 15 ML BOT EA EYE PRN (08:21)
[2021-03-10] MEDS ORDERED: GUAIFENESIN SF SOLN 200 MG/10 ML UDCUP PO PRN (08:21)
[2021-03-10] MEDS ORDERED: hydrALAZINE 20 MG/ML VIAL SLOW IVP PRN (08:21)
[2021-03-10] MEDS ORDERED: Sodium Chloride 0.65% Nasal 44 ML BOT EA NARE PRN (08:21)
[2021-03-10] MEDS ORDERED: Bisacodyl 5 MG TAB PO PRN (08:21)
[2021-03-10] MEDS ORDERED: Morphine 4 MG/ML VIAL SLOW IVP PRN (08:24)
[2021-03-10] MEDS ORDERED: clonazePAM 1 MG TAB PO PRN (08:28)
[2021-03-10] MEDS ORDERED: Enoxaparin Sodium 40 MG/0.4 ML SYRINGE SC SCH (09:00)
[2021-03-10] MEDS: cefTRIAXone\\ROCEPHIN 1 GM in Sodium Chloride 0.9% 100 ML IVPB SCH (09:46)
[2021-03-10] MEDS: D5 1/2 NS w/20 mEq KCL 1,000 ML IV SCH ×2 (09:46→20:16)
[2021-03-10] MEDS: Folic Acid 1 MG TAB PO SCH (09:47)
[2021-03-10] MEDS: Fluticasone Propionate Nasal Spray 16 gm Bottle NASAL SCH (09:47)
[2021-03-10] MEDS: Pantoprazole 40 MG VIAL IVP SCH ×2 (09:47→20:17)
[2021-03-10] MEDS: Lisinopril 5 MG TAB PO SCH (09:47)
[2021-03-10] MEDS: Multivit, Therapeutic 1 TAB PO SCH (09:47)
[2021-03-10] MEDS: Thiamine HCl 200 MG/2 ML VIAL SLOW IVP SCH (13:51)
[2021-03-11] MEDS: D5 1/2 NS w/20 mEq KCL 1,000 ML IV SCH ×2 (04:30→10:56)
[2021-03-11 05:22] LABS: #Eosinphils 0.1 thou/uL (0.0-0.7); #Lymphocytes 1.1 thou/uL (1.20-3.40); #Monocytes 0.3 thou/uL (0.11-0.59); #Neutrophils 1.7 thou/uL (1.40-6.50); %Basophils 1.1 % (0.0-1.0); %Eosinophils 1.8 % (0.0-10.0); %Lymphocytes 34.4 % (21.0-51.0); %Monocytes 10.1 % (0.0-10.0); %Neutrophils 52.5 % (42.0-75.0); Hemoglobin 10.6 g/dL (14.0-18.0); Mean Corpuscular HGB CONC 36.3 g/dL (32.0-36.0); Mean Corpuscular Hemoglobin 36.8 pg (27.0-31.0); Mean Platelet Volume 8.2 fL (7.4-10.4); Platelet Count 76 thou/uL (130-400); RBC Distribution Width 11.5 % (11.5-14.5); Red Blood Cell (RBC) Count 2.89 mill/uL (4.70-6.10); White Blood Cell (WBC) Count 3.2 thou/uL (4.8-10.8)
[2021-03-11 06:00] LABS: ALT (SGPT) 43 U/L (8-55); AST (SGOT) 67 U/L (5-34); Albumin 3.1 g/dL (3.5-5.0); Alkaline Phosphatase 109 U/L (40-110); Anion Gap 11 mmol/L (10-20); BUN (Urea Nitrogen) 7 mg/dL (8.9-20.6); Bilirubin, Total 2.3 mg/dL (0.2-1.2); CRP (Inflammatory) 1.12 mg/dL (= or < 0.5); Calc. Creatinine Clearance 141 mL/min (70-130); Calcium 8.4 mg/dL (7.8-10.44); Carbon Dioxide 27 mmol/L (22-29); Cardiac Risk 3.4 (Less than 4.5); Chloride 95 mmol/L (98-107); Cholesterol 171 mg/dl (< 200 Desired); Globulin 2.3 g/dL (2.4-3.5); Glucose 108 mg/dL (70-105); HDL Cholesterol 51 mg/dL (>60 Neg Risk); LDL Cholesterol, Calculated 102 mg/dL; Lipase 194 U/L (8-78); Magnesium 1.3 mg/dL (1.6-2.6); Phosphorus Less than 1.0 mg/dL (2.3-4.7); Potassium 2.7 mmol/L (3.5-5.1); Protein, Total 5.4 g/dL (6.0-8.3); Sodium 130 mmol/L (136-145); Triglycerides 89 mg/dL (Less than 150)
[2021-03-11] MEDS ORDERED: Electrolyte Replacement Protocol 1 EACH FS PRN (06:15)
[2021-03-11] MEDS ORDERED: Magnesium Sulfate 4 GM in Sodium Chloride 0.9% 250 ML 250 ML IVPB SCH (06:15)
[2021-03-11] MEDS ORDERED: Potassium Phosphate 30 MMOL in Sodium Chloride 0.9% 500 ML IVPB SCH ×2 (06:30→08:30)
[2021-03-11] MEDS: Multivit, Therapeutic 1 TAB PO SCH (08:37)
[2021-03-11] MEDS: Lisinopril 5 MG TAB PO SCH (08:37)
[2021-03-11] MEDS: Folic Acid 1 MG TAB PO SCH (08:37)
[2021-03-11] MEDS: Fluticasone Propionate Nasal Spray 16 gm Bottle NASAL SCH (08:38)
[2021-03-11] MEDS: Pantoprazole 40 MG VIAL IVP SCH (08:45)
[2021-03-11 09:10] LABS: Vancomycin, Trough 1.5 ug/mL
[2021-03-11] MEDS: cefTRIAXone\\ROCEPHIN 1 GM in Sodium Chloride 0.9% 100 ML IVPB SCH (10:05)
[2021-03-11] MEDS: Potassium Chloride 20 MEQ in Premix Bag 1 BAG IVPB SCH ×4 (10:51→17:40)
[2021-03-11] MEDS ORDERED: Potassium Chloride 20 MEQ in Premix Bag 1 BAG IVPB SCH (16:45)
[2021-03-11] MEDS: Thiamine HCl 200 MG/2 ML VIAL SLOW IVP SCH (17:40)
[2021-03-12 04:46] VITALS: BP 124/65; TEMP 98.1
[2021-03-12 05:43] LABS: #Eosinphils 0.1 thou/uL (0.0-0.7); #Monocytes 0.4 thou/uL (0.11-0.59); #Neutrophils 1.8 thou/uL (1.40-6.50); %Basophils 0.6 % (0.0-1.0); %Eosinophils 1.6 % (0.0-10.0); %Lymphocytes 31.6 % (21.0-51.0); %Neutrophils 54.2 % (42.0-75.0); Mean Corpuscular HGB CONC 34.9 g/dL (32.0-36.0); Mean Corpuscular Hemoglobin 35.5 pg (27.0-31.0); Mean Platelet Volume 8.7 fL (7.4-10.4); Platelet Count 95 thou/uL (130-400); RBC Distribution Width 11.7 % (11.5-14.5); White Blood Cell (WBC) Count 3.2 thou/uL (4.8-10.8)
[2021-03-12 06:07] LABS: ALT (SGPT) 75 U/L (8-55); AST (SGOT) 135 U/L (5-34); Albumin 3.4 g/dL (3.5-5.0); Alkaline Phosphatase 118 U/L (40-110); Anion Gap 9 mmol/L (10-20); BUN (Urea Nitrogen) 5 mg/dL (8.9-20.6); Bilirubin, Total 1.6 mg/dL (0.2-1.2); Calc. Creatinine Clearance 153 mL/min (70-130); Carbon Dioxide 30 mmol/L (22-29); Chloride 97 mmol/L (98-107); Globulin 2.5 g/dL (2.4-3.5); Glucose 104 mg/dL (70-105); Magnesium 1.6 mg/dL (1.6-2.6); Potassium 2.8 mmol/L (3.5-5.1); Protein, Total 5.9 g/dL (6.0-8.3); Sodium 133 mmol/L (136-145)
[2021-03-12] MEDS ORDERED: Magnesium 2 GM/50 ML 2 GM in Premix Bag 1 BAG IVPB SCH (07:00)
[2021-03-12] MEDS ORDERED: Potassium Chloride 20 MEQ TAB PO SCH (08:00)
[2021-03-12] MEDS ORDERED: PHOS-NAK 1 PKT PACK PO SCH (08:00)
== END 2021-03-12 07:15 | disposition left against medical advice (07) | DRG 871 ==
LOC: ERS 08:57 → ERHOLD 11:48 → 2NO 15:56
PROVIDERS: ADMIT Family Medicine; ATTEND Internal Medicine
DX: A41.9 Sepsis, unspecified organism (principal); K85.20 Alcohol induced acute pancreatitis without necrosis or infection; R65.21 Severe sepsis with septic shock; N17.9 Acute kidney failure, unspecified; I10 Essential (primary) hypertension; G40.909 Epilepsy, unspecified, not intractable, without status epilepticus; Z20.822 Contact with and (suspected) exposure to COVID-19; F10.10 Alcohol abuse, uncomplicated; D53.9 Nutritional anemia, unspecified; D69.6 Thrombocytopenia, unspecified; E87.6 Hypokalemia; E83.39 Other disorders of phosphorus metabolism; K29.80 Duodenitis without bleeding; E86.0 Dehydration; E83.42 Hypomagnesemia; Z88.0 Allergy status to penicillin; Z90.49 Acquired absence of other specified parts of digestive tract; Z79.899 Other long term (current) drug therapy
CPT/HCPCS: 36415; 36416; 71045; 71275; 74177; 74181; 80053; 80061; 80202; 80306; 81003; 81015; 83605; 83690; 83735; 84100; 85025; 85610; 85730; 86140; 87040; 87077; 87086; 87149; 87186; 93005; 94760; 96365; 96368; 96375; 96376; C9113; J0692; J0696; J2270; J2405; J3370; J3411; J3475; J3480; J3490; J7030; J7050; Q9967; U0002

== ENCOUNTER 2021-11-08 07:10 | Inpatient (IN) | payer SELFPAY ==
[2021-11-08 07:57] LABS: #Lymphocytes 1.1 thou/uL (1.20-3.40); #Monocytes 0.5 thou/uL (0.11-0.59); #Neutrophils 4.7 thou/uL (1.40-6.50); %Basophils 0.5 % (0.0-1.0); %Eosinophils 0.6 % (0.0-10.0); %Lymphocytes 16.7 % (21.0-51.0); %Neutrophils 74.2 % (42.0-75.0); Hemoglobin 13.3 g/dL (14.0-18.0); Mean Corpuscular HGB CONC 33.5 g/dL (32.0-36.0); Mean Corpuscular Hemoglobin 34.3 pg (27.0-31.0); Platelet Count 90 thou/uL (130-400); RBC Distribution Width 12.1 % (11.5-14.5); Red Blood Cell (RBC) Count 3.86 mill/uL (4.70-6.10); White Blood Cell (WBC) Count 6.4 thou/uL (4.8-10.8)
[2021-11-08 08:17] LABS: ALT (SGPT) 77 U/L (8-55); AST (SGOT) 169 U/L (5-34); Albumin 3.8 g/dL (3.5-5.0); Alkaline Phosphatase 99 U/L (40-110); Anion Gap 21 mmol/L (10-20); BUN (Urea Nitrogen) 31 mg/dL (8.9-20.6); Bilirubin, Total 2.8 mg/dL (0.2-1.2); CK (CPK) 86 U/L (30-200); Calc. Creatinine Clearance 0 mL/min (70-130); Calcium 8.9 mg/dL (7.8-10.44); Carbon Dioxide 24 mmol/L (22-29); Chloride 88 mmol/L (98-107); Globulin 3.1 g/dL (2.4-3.5); Glucose 95 mg/dL (70-105); Protein, Total 6.9 g/dL (6.0-8.3); Sodium 131 mmol/L (136-145)
[2021-11-08 08:22] LABS: Potassium 2.4 mmol/L (3.5-5.1)
[2021-11-08 09:16] LABS: Acetaminophen Less than 10.0 mcg/mL (10.0-30.0); Alcohol 110 mg/dL (Less than 10); Salicylate Less than 8.0 mg/dL (15.0-30.0)
[2021-11-08] MEDS ORDERED: Potassium Chloride 20 MEQ/100 ML PREMIX BAG ONE (10:06)
[2021-11-08] MEDS ORDERED: Potassium Chloride 20 MEQ TAB ONE (10:06)
[2021-11-08] MEDS ORDERED: Cefepime 2 GM VIAL ONE ×2 (10:26→13:08)
[2021-11-08 11:11] LABS: Bacteria/HPF 1+ HPF (None Seen); Bilirubin Negative (Negative); Blood, Urine Negative (Negative); Clarity Turbid (Clear); Glucose, Urine (Dipstick) Normal (Negative); Ketone, Urine Negative (Negative); Leukocyte Negative Leu/uL (Negative); Nitrite Negative (Negative); Protein, Urine (Dipstick) 30 mg/dL (Neg-Trace); RBC/HPF 0-3 HPF (0-3); Specific Gravity, Urine 1.014 (1.002-1.036); Squamous Epithelial None Seen HPF (0-3); WBC/HPF 0-3 HPF (0-3); pH, Urine 5.5 (5.0-9.0)
[2021-11-08] MEDS ORDERED: Iopamidol-370 76% 500 ML 1 ML ONE (12:04)
[2021-11-08 12:16] LABS: Lactic Acid 1.4 mmol/L (0.5-2.2)
[2021-11-08] MEDS ORDERED: Magnesium 2 GM/50 ML BAG (IN WATER) ONE (13:08)
[2021-11-08] MEDS ORDERED: Senokot S 8.6-50 MG TAB PO PRN (13:09)
[2021-11-08] MEDS ORDERED: Ondansetron ODT 4 MG TAB PO PRN (13:14)
[2021-11-08] MEDS ORDERED: Lorazepam 2 MG/ML VIAL IM PRN (13:14)
[2021-11-08] MEDS ORDERED: Electrolyte Replacement Protocol 1 EACH FS PRN (13:15)
[2021-11-08 14:48] LABS: Potassium 3.1 mmol/L (3.5-5.1)
[2021-11-08 14:53] LABS: Magnesium 1.5 mg/dL (1.6-2.6)
[2021-11-08] MEDS: Potassium Chloride 20 MEQ TAB PO SCH ×2 (16:51→17:24)
[2021-11-08 16:59] VITALS: BMI 21.4
[2021-11-08] MEDS: Thiamine HCl 200 MG/2 ML VIAL SLOW IVP SCH (17:25)
[2021-11-08 17:28] LABS: Amphetamine Not Detected (NotDetected); Barbiturates Screen Not Detected (NotDetected); Benzodiazepine Screen Not Detected (NotDetected); Cocaine Metabolite Screen Not Detected (NotDetected); Methadone Not Detected (NotDetected); Methamphetamine Not Detected (NotDetected); Opiate Screen Not Detected (NotDetected); Oxycodone Screen Not Detected (NotDetected); Phencyclidine (PCP) Not Detected (NotDetected); THC/Cannabinoid Screen Not Detected (NotDetected); Tricyclic Screen Not Detected (NotDetected)
[2021-11-08] MEDS ORDERED: Acetaminophen 325 MG TAB PO SCH (20:45)
[2021-11-08] MEDS: Famotidine 20 MG TAB PO SCH (21:02)
[2021-11-08] MEDS: Lorazepam 1 MG TAB PO PRN (22:27)
[2021-11-09] MEDS ORDERED: Lorazepam 2 MG/ML VIAL SLOW IVP PRN (01:39)
[2021-11-09] MEDS ORDERED: Ziprasidone 20 MG VIAL ONE (03:40)
[2021-11-09] MEDS ORDERED: Ziprasidone 20 MG VIAL IM SCH ×3 (04:00→23:59)
[2021-11-09] MEDS ORDERED: Sterile Water 20 ML VIAL FS PRN ×2 (04:00→23:59)
[2021-11-09] MEDS: Lactated Ringer's 1,000 ML IV SCH ×2 (04:38→16:19)
[2021-11-09 05:56] LABS: #Eosinphils 0.1 thou/uL (0.0-0.7); #Monocytes 0.5 thou/uL (0.11-0.59); #Neutrophils 2.8 thou/uL (1.40-6.50); %Eosinophils 1.3 % (0.0-10.0); %Lymphocytes 22.5 % (21.0-51.0); %Monocytes 10.5 % (0.0-10.0); %Neutrophils 65.6 % (42.0-75.0); Hemoglobin 11.5 g/dL (14.0-18.0); Mean Corpuscular HGB CONC 33.4 g/dL (32.0-36.0); Mean Corpuscular Hemoglobin 34.9 pg (27.0-31.0); Mean Platelet Volume 9.6 fL (7.4-10.4); Platelet Count 90 thou/uL (130-400); RBC Distribution Width 12.1 % (11.5-14.5); Red Blood Cell (RBC) Count 3.28 mill/uL (4.70-6.10); White Blood Cell (WBC) Count 4.3 thou/uL (4.8-10.8)
[2021-11-09 06:31] LABS: ALT (SGPT) 53 U/L (8-55); AST (SGOT) 83 U/L (5-34); Albumin 3.3 g/dL (3.5-5.0); Alkaline Phosphatase 97 U/L (40-110); Anion Gap 13 mmol/L (10-20); BUN (Urea Nitrogen) 25 mg/dL (8.9-20.6); Bilirubin, Total 1.4 mg/dL (0.2-1.2); Calc. Creatinine Clearance 119 mL/min (70-130); Calcium 8.9 mg/dL (7.8-10.44); Carbon Dioxide 25 mmol/L (22-29); Chloride 101 mmol/L (98-107); Globulin 2.7 g/dL (2.4-3.5); Glucose 121 mg/dL (70-105); Potassium 3.1 mmol/L (3.5-5.1); Sodium 136 mmol/L (136-145)
[2021-11-09] MEDS ORDERED: Potassium Chloride 20 MEQ TAB PO SCH ×2 (08:00→14:15)
[2021-11-09] MEDS: Famotidine 20 MG TAB PO SCH ×2 (09:40→21:27)
[2021-11-09] MEDS: Multivit, Therapeutic 1 TAB PO SCH (09:40)
[2021-11-09] MEDS: Folic Acid 1 MG TAB PO SCH (09:40)
[2021-11-09] MEDS: Lorazepam 1 MG TAB PO PRN ×5 (09:40→21:26)
[2021-11-09] MEDS ORDERED: Magnesium Sulfate 2 GM in Sodium Chloride 0.9% 100 ML IVPB SCH (11:15)
[2021-11-09] MEDS ORDERED: Magnesium 2 GM/50 ML(in water) 2 GM in Premix Bag 1 BAG IVPB SCH (12:00)
[2021-11-09 13:56] LABS: Potassium 3.5 mmol/L (3.5-5.1)
[2021-11-09] MEDS: Multivitamins, Adult 10 ML, Folic Acid 1 MG, Thiamine HCl 100 MG in Dextrose 5 %-0.45 %... IV SCH (14:34)
[2021-11-09] MEDS: Thiamine HCl 200 MG/2 ML VIAL SLOW IVP SCH (16:14)
[2021-11-09 19:18] LABS: Potassium 3.7 mmol/L (3.5-5.1)
[2021-11-09] MEDS: Sterile Water 10 ML VIAL FS SCH (21:59)
[2021-11-10] MEDS: Sterile Water 10 ML VIAL FS SCH (00:08)
[2021-11-10 05:53] LABS: ALT (SGPT) 65 U/L (8-55); AST (SGOT) 100 U/L (5-34); Albumin 3.5 g/dL (3.5-5.0); Alkaline Phosphatase 95 U/L (40-110); Anion Gap 13 mmol/L (10-20); BUN (Urea Nitrogen) 13 mg/dL (8.9-20.6); Calc. Creatinine Clearance 139 mL/min (70-130); Calcium 9.4 mg/dL (7.8-10.44); Carbon Dioxide 26 mmol/L (22-29); Chloride 101 mmol/L (98-107); Globulin 2.8 g/dL (2.4-3.5); Glucose 103 mg/dL (70-105); Magnesium 1.6 mg/dL (1.6-2.6); Potassium 3.4 mmol/L (3.5-5.1); Protein, Total 6.3 g/dL (6.0-8.3); Sodium 137 mmol/L (136-145)
[2021-11-10 07:07] LABS: Band 4 % (5-11); Eosinophils 3 % (0-10); Hemoglobin 11.9 g/dL (14.0-18.0); Lymphocytes 30 % (21-51); MDiff Complete? YES; Macrocytosis MODERATE=16-30 cells (100X) (0-5/hpf); Mean Corpuscular HGB CONC 32.8 g/dL (32.0-36.0); Mean Corpuscular Hemoglobin 34.4 pg (27.0-31.0); Mean Platelet Volume 8.6 fL (7.4-10.4); Monocytes 13 % (0-10); Neutrophil 50 % (42-75); Ovalocytes SLIGHT = 2-5 cells (100X) (0-1/hpf); Platelet Count 120 thou/uL (130-400); Platelet Morphology Comment Appears Decreased; RBC Distribution Width 12.1 % (11.5-14.5); Red Blood Cell (RBC) Count 3.47 mill/uL (4.70-6.10); White Blood Cell (WBC) Count 4.9 thou/uL (4.8-10.8)
[2021-11-10] MEDS ORDERED: Potassium Chloride 20 MEQ TAB PO SCH (08:00)
[2021-11-10] MEDS ORDERED: Magnesium 2 GM/50 ML(in water) 2 GM in Premix Bag 1 BAG IVPB SCH (08:00)
[2021-11-10] MEDS: Folic Acid 1 MG TAB PO SCH (08:48)
[2021-11-10] MEDS: Multivit, Therapeutic 1 TAB PO SCH (08:48)
[2021-11-10] MEDS: Famotidine 20 MG TAB PO SCH ×2 (08:48→21:23)
[2021-11-10] MEDS: Thiamine HCl 200 MG/2 ML VIAL SLOW IVP SCH (15:01)
[2021-11-10] MEDS: Multivitamins, Adult 10 ML, Folic Acid 1 MG, Thiamine HCl 100 MG in Dextrose 5 %-0.45 %... IV SCH (15:02)
[2021-11-10] MEDS: Lorazepam 1 MG TAB PO PRN ×2 (17:31→21:23)
[2021-11-10] MEDS ORDERED: Loratadine/Pseudoephedrine 10/240 mg Tablet PO SCH (21:00)
[2021-11-11 06:38] LABS: ALT (SGPT) 110 U/L (8-55); AST (SGOT) 152 U/L (5-34); Albumin 3.3 g/dL (3.5-5.0); Alkaline Phosphatase 99 U/L (40-110); Anion Gap 16 mmol/L (10-20); BUN (Urea Nitrogen) 10 mg/dL (8.9-20.6); Bilirubin, Total 0.9 mg/dL (0.2-1.2); Calc. Creatinine Clearance 149 mL/min (70-130); Carbon Dioxide 21 mmol/L (22-29); Chloride 99 mmol/L (98-107); Globulin 3.1 g/dL (2.4-3.5); Glucose 101 mg/dL (70-105); Magnesium 1.5 mg/dL (1.6-2.6); Potassium 3.8 mmol/L (3.5-5.1); Protein, Total 6.4 g/dL (6.0-8.3); Sodium 132 mmol/L (136-145)
[2021-11-11 06:43] LABS: Band 7 % (5-11); Eosinophils 1 % (0-10); Hemoglobin 13.1 g/dL (14.0-18.0); Hypochromia SLIGHT = 6-15 cells (100X) (0-5/hpf); Lymphocytes 29 % (21-51); MDiff Complete? YES; Mean Corpuscular Hemoglobin 34.2 pg (27.0-31.0); Mean Platelet Volume 8.5 fL (7.4-10.4); Monocytes 14 % (0-10); Neutrophil 49 % (42-75); Platelet Count 157 thou/uL (130-400); Platelet Morphology Comment Appears Adequate; RBC Distribution Width 12.3 % (11.5-14.5); Red Blood Cell (RBC) Count 3.83 mill/uL (4.70-6.10); White Blood Cell (WBC) Count 5.4 thou/uL (4.8-10.8)
[2021-11-11] MEDS ORDERED: Magnesium 2 GM/50 ML(in water) 2 GM in Premix Bag 1 BAG IVPB SCH (08:00)
[2021-11-11] MEDS: Multivit, Therapeutic 1 TAB PO SCH (08:26)
[2021-11-11] MEDS: Famotidine 20 MG TAB PO SCH (08:26)
[2021-11-11] MEDS: Folic Acid 1 MG TAB PO SCH (08:26)
[2021-11-11 09:55] LABS: Free T4 (Free Thyroxine) 1.02 ng/dL (0.70-1.48); Thyroid Stimulating Hormone 0.3402 uIU/mL (0.35-4.94)
[2021-11-11] MEDS ORDERED: Thiamine 100 MG TAB PO SCH (12:00)
[2021-11-11 12:31] VITALS: BP 127/92; TEMP 98.6
[2021-11-11] MEDS: Multivitamins, Adult 10 ML, Folic Acid 1 MG, Thiamine HCl 100 MG in Dextrose 5 %-0.45 %... IV SCH (14:37)
== END 2021-11-11 15:29 | disposition home or self-care (01) | DRG 897 ==
LOC: ERS 07:10 → ERHOLD 13:13 → NEURO 16:50 → T4-B 11-10 13:27 → OBSVTOIN 11-10 16:00
PROVIDERS: ADMIT Internal Medicine; ATTEND Internal Medicine
PROC: HZ2ZZZZ Detoxification Services for Substance Abuse Treatment (ICD-10-PCS; principal; 2021-11-10)
DX: F10.139 Alcohol abuse with withdrawal, unspecified (principal); N17.9 Acute kidney failure, unspecified; I42.6 Alcoholic cardiomyopathy; E86.0 Dehydration; F10.129 Alcohol abuse with intoxication, unspecified; Z20.822 Contact with and (suspected) exposure to COVID-19; I10 Essential (primary) hypertension; E87.6 Hypokalemia; E83.42 Hypomagnesemia; D69.6 Thrombocytopenia, unspecified; K76.89 Other specified diseases of liver; Y90.5 Blood alcohol level of 100-119 mg/100 ml; Z90.49 Acquired absence of other specified parts of digestive tract; Z88.0 Allergy status to penicillin; Z79.899 Other long term (current) drug therapy
CPT/HCPCS: 36415; 36416; 71045; 74177; 80053; 80306; 80307; 81003; 81015; 82550; 83605; 83735; 84439; 84443; 84484; 85025; 87040; 93005; 93306; 94760; 96372; 96375; 96376; G0378; J0692; J2060; J3411; J3475; J3480; J3486; J7042; J7120

== ENCOUNTER 2022-07-08 12:07 | Inpatient (IN) | payer BC ==
[2022-07-08] MEDS ORDERED: Pantoprazole 40 MG VIAL ONE (12:30)
[2022-07-08] MEDS ORDERED: Ondansetron PF 4 MG/2 ML Vial ONE (12:30)
[2022-07-08 12:37] LABS: #Lymphocytes 1.1 thou/uL (1.20-3.40); #Monocytes 0.4 thou/uL (0.11-0.59); %Basophils 0.2 % (0.0-1.0); %Eosinophils 0.3 % (0.0-10.0); %Lymphocytes 17.3 % (21.0-51.0); %Monocytes 5.9 % (0.0-10.0); %Neutrophils 76.2 % (42.0-75.0); Hemoglobin 13.3 g/dL (14.0-18.0); Mean Corpuscular HGB CONC 33.9 g/dL (32.0-36.0); Mean Corpuscular Hemoglobin 34.1 pg (27.0-31.0); Mean Platelet Volume 9.3 fL (7.4-10.4); Platelet Count 77 10x3/uL (130-400); RBC Distribution Width 12.5 % (11.5-14.5); Red Blood Cell (RBC) Count 3.89 mill/uL (4.70-6.10); White Blood Cell (WBC) Count 6.5 10x3/uL (4.8-10.8)
[2022-07-08 12:44] LABS: Prothrombin Time 13.4 sec (12.0-14.7)
[2022-07-08 12:45] LABS: PTT 23.9 sec (22.9-36.1)
[2022-07-08 12:57] LABS: ALT (SGPT) 72 U/L (8-55); AST (SGOT) 91 U/L (5-34); Albumin 4.5 g/dL (3.5-5.0); Alkaline Phosphatase 119 U/L (40-110); Anion Gap 17 mmol/L (10-20); BUN (Urea Nitrogen) 44 mg/dL (8.4-25.7); Band 4 % (5-11); Bilirubin, Total 3.3 mg/dL (0.2-1.2); Calc. Creatinine Clearance 0 mL/min (70-130); Calcium 9.8 mg/dL (7.8-10.44); Carbon Dioxide 26 mmol/L (22-29); Chloride 92 mmol/L (98-107); Estimated GFR 37; Globulin 3.4 g/dL (2.4-3.5); Glucose 126 mg/dL (70-105); Lymphocytes 20 % (21-51); MDiff Complete? YES; Monocytes 4 % (0-10); Neutrophil 72 % (42-75); Platelet Morphology Comment Appears Decreased; Potassium 3.6 mmol/L (3.5-5.1); Protein, Total 7.9 g/dL (6.0-8.3); RBC Morphology Normal; Sodium 131 mmol/L (136-145)
[2022-07-08] MEDS ORDERED: Cefepime 2 GM VIAL ONE (13:02)
[2022-07-08] MEDS ORDERED: Vancomycin 1 GM/200 ML (FROZEN) BAG ONE (13:02)
[2022-07-08 13:09] LABS: SARS-CoV-2 NAA Rapid Test Not Detected (NotDetected)
[2022-07-08] MEDS ORDERED: Ketorolac Tromethamine 30 MG/ML VIAL ONE (13:15)
[2022-07-08 14:02] LABS: Acetaminophen Less than 10.0 mcg/mL (10.0-30.0); Alcohol Less than 10 mg/dL (Less than 10); Salicylate Less than 8.0 mg/dL (15.0-30.0)
[2022-07-08] MEDS ORDERED: Ipratropium/Albuterol 3 ML NEB NEB PRN (15:33)
[2022-07-08] MEDS ORDERED: Lorazepam 2 MG/ML VIAL IM PRN (15:37)
[2022-07-08] MEDS ORDERED: Ondansetron ODT 4 MG TAB PO PRN (15:37)
[2022-07-08 15:58] LABS: Troponin I Less than 0.010 ng/mL (< 0.028)
[2022-07-08 16:16] LABS: Magnesium 1.4 mg/dL (1.6-2.6)
[2022-07-08 16:28] LABS: Phosphorus 1.4 mg/dL (2.3-4.7)
[2022-07-08 17:47] LABS: Bacteria/HPF None Seen HPF (None Seen); Bilirubin Negative (Negative); Blood, Urine Negative (Negative); Clarity Clear (Clear); Glucose, Urine (Dipstick) Normal (Negative); Ketone, Urine Negative (Negative); Leukocyte Negative Leu/uL (Negative); Nitrite Negative (Negative); Protein, Urine (Dipstick) 30 mg/dL (Neg-Trace); RBC/HPF 0-3 HPF (0-3); Squamous Epithelial 0-3 HPF (0-3); WBC/HPF 0-3 HPF (0-3)
[2022-07-08] MEDS ORDERED: Electrolyte Replacement Protocol 1 EACH FS SCH (18:15)
[2022-07-08] MEDS ORDERED: Potassium Phosphate 22 MMOL in Sodium Chloride 0.9% 250 ML 250 ML IVPB SCH (18:30)
[2022-07-08] MEDS ORDERED: Magnesium Sulfate In Water 4 GM in Premix Bag 1 BAG IVPB SCH (18:30)
[2022-07-08 18:35] LABS: Amphetamine Not Detected (NotDetected); Barbiturates Screen Not Detected (NotDetected); Benzodiazepine Screen Detected (NotDetected); Cocaine Metabolite Screen Not Detected (NotDetected); Methadone Not Detected (NotDetected); Methamphetamine Not Detected (NotDetected); Opiate Screen Not Detected (NotDetected); Oxycodone Screen Not Detected (NotDetected); Phencyclidine (PCP) Not Detected (NotDetected); THC/Cannabinoid Screen Not Detected (NotDetected); Tricyclic Screen Not Detected (NotDetected)
[2022-07-08] MEDS: Sodium Chloride 0.9% 1,000 ML IV SCH (19:37)
[2022-07-08 20:04] LABS: #Lymphocytes 1.8 thou/uL (1.20-3.40); #Monocytes 0.4 thou/uL (0.11-0.59); #Neutrophils 3.1 thou/uL (1.40-6.50); %Basophils 0.5 % (0.0-1.0); %Eosinophils 0.3 % (0.0-10.0); %Lymphocytes 33.1 % (21.0-51.0); %Monocytes 7.6 % (0.0-10.0); %Neutrophils 58.5 % (42.0-75.0); Hemoglobin 10.8 g/dL (14.0-18.0); Mean Corpuscular HGB CONC 34.6 g/dL (32.0-36.0); Mean Corpuscular Hemoglobin 35.4 pg (27.0-31.0); Mean Platelet Volume 9.6 fL (7.4-10.4); Platelet Count 55 10x3/uL (130-400); RBC Distribution Width 12.7 % (11.5-14.5); Red Blood Cell (RBC) Count 3.06 mill/uL (4.70-6.10); White Blood Cell (WBC) Count 5.3 10x3/uL (4.8-10.8)
[2022-07-08 20:08] VITALS: BP 106/69
[2022-07-08 20:27] LABS: Troponin I Less than 0.010 ng/mL (< 0.028)
[2022-07-08 20:34] LABS: Anion Gap 10 mmol/L (10-20); BUN (Urea Nitrogen) 43 mg/dL (8.4-25.7); Calc. Creatinine Clearance 0 mL/min (70-130); Calcium 8.3 mg/dL (7.8-10.44); Carbon Dioxide 26 mmol/L (22-29); Chloride 99 mmol/L (98-107); Estimated GFR 50; Glucose 87 mg/dL (70-105); Potassium 3.3 mmol/L (3.5-5.1); Sodium 132 mmol/L (136-145)
[2022-07-08] MEDS: Pantoprazole 40 MG VIAL IVP SCH (22:49)
[2022-07-08] MEDS: Thiamine HCl 200 MG/2 ML VIAL SLOW IVP SCH (22:49)
[2022-07-08] MEDS: clonazePAM 1 MG TAB PO SCH (22:50)
[2022-07-09 00:26] VITALS: BMI 21.3
[2022-07-09] MEDS ORDERED: Cefepime 1 GM in Sodium Chloride 0.9% 100 ML IVPB SCH (01:00)
[2022-07-09 04:22] LABS: #Eosinphils 0.1 thou/uL (0.0-0.7); #Lymphocytes 1.5 thou/uL (1.20-3.40); #Monocytes 0.4 thou/uL (0.11-0.59); #Neutrophils 3.7 thou/uL (1.40-6.50); %Basophils 0.7 % (0.0-1.0); %Eosinophils 1.2 % (0.0-10.0); %Lymphocytes 26.4 % (21.0-51.0); %Monocytes 6.4 % (0.0-10.0); %Neutrophils 65.3 % (42.0-75.0); Mean Corpuscular HGB CONC 33.9 g/dL (32.0-36.0); Mean Corpuscular Hemoglobin 34.7 pg (27.0-31.0); Mean Platelet Volume 9.8 fL (7.4-10.4); Platelet Count 46 10x3/uL (130-400); RBC Distribution Width 12.6 % (11.5-14.5); Red Blood Cell (RBC) Count 3.18 mill/uL (4.70-6.10); White Blood Cell (WBC) Count 5.6 10x3/uL (4.8-10.8)
[2022-07-09 04:46] LABS: Anion Gap 10 mmol/L (10-20); BUN (Urea Nitrogen) 33 mg/dL (8.4-25.7); Calc. Creatinine Clearance 88 mL/min (70-130); Calcium 8.5 mg/dL (7.8-10.44); Carbon Dioxide 27 mmol/L (22-29); Chloride 99 mmol/L (98-107); Estimated GFR 77; Glucose 82 mg/dL (70-105); Magnesium 2.2 mg/dL (1.6-2.6); Potassium 3.4 mmol/L (3.5-5.1); Sodium 133 mmol/L (136-145)
[2022-07-09 04:59] LABS: Phosphorus 3.3 mg/dL (2.3-4.7)
[2022-07-09] MEDS: Sodium Chloride 0.9% 1,000 ML IV SCH ×5 (05:38→23:31)
[2022-07-09] MEDS ORDERED: Potassium Chloride 20 MEQ TAB PO SCH (08:00)
[2022-07-09] MEDS: Pantoprazole 40 MG VIAL IVP SCH ×2 (08:51→20:29)
[2022-07-09] MEDS: clonazePAM 1 MG TAB PO SCH ×2 (08:51→20:29)
[2022-07-09] MEDS: Lorazepam 1 MG TAB PO PRN ×2 (10:26→15:42)
[2022-07-09] MEDS: Cefepime 2 GM in Sodium Chloride 0.9% 100 ML IVPB SCH (13:34)
[2022-07-09] MEDS ORDERED: Lorazepam 1 MG TAB PO PRN (15:37)
[2022-07-09] MEDS: Thiamine HCl 200 MG/2 ML VIAL SLOW IVP SCH (15:42)
[2022-07-10] MEDS: Cefepime 2 GM in Sodium Chloride 0.9% 100 ML IVPB SCH (00:51)
[2022-07-10 04:34] VITALS: TEMP 98.4
[2022-07-10] MEDS ORDERED: Lorazepam 1 MG TAB PO PRN (15:37)
[2022-07-11] MEDS ORDERED: Lorazepam 0.5 MG TAB PO PRN (15:37)
[2022-07-11] MEDS ORDERED: Thiamine 100 MG TAB PO SCH (15:45)
== END 2022-07-10 05:45 | disposition left against medical advice (07) | DRG 872 ==
LOC: ERS 12:07 → ERHOLD 14:36 → IMCU/EMU 21:14
PROVIDERS: ADMIT Family Medicine; ATTEND Internal Medicine
DX: A41.9 Sepsis, unspecified organism (principal); N17.9 Acute kidney failure, unspecified; E87.1 Hypo-osmolality and hyponatremia; I10 Essential (primary) hypertension; G51.0 Bell's palsy; E86.0 Dehydration; G89.4 Chronic pain syndrome; F41.9 Anxiety disorder, unspecified; F17.210 Nicotine dependence, cigarettes, uncomplicated; D69.6 Thrombocytopenia, unspecified; E87.6 Hypokalemia; F10.20 Alcohol dependence, uncomplicated; Z53.29 Procedure and treatment not carried out because of patient's decision for other reasons; Z88.0 Allergy status to penicillin; Z79.899 Other long term (current) drug therapy; Z90.49 Acquired absence of other specified parts of digestive tract
CPT/HCPCS: 36415; 36556; 70450; 71045; 71260; 74177; 80048; 80053; 80306; 80307; 81003; 81015; 82140; 83605; 83690; 83735; 84100; 84484; 85025; 85610; 85730; 86850; 86900; 86901; 87040; 93005; 94760; 96361; 96365; 96374; 96375; C9113; J0692; J1885; J2405; J3370-JW; J3411; J3475; J3490; J7050; Q9967

== ENCOUNTER 2022-08-26 08:55 | Inpatient (IN) | payer BC ==
[2022-08-26] MEDS ORDERED: Iopamidol 370 76% 100 ML VIAL ONE (09:45)
[2022-08-26] MEDS ORDERED: Morphine 4 MG/ML VIAL ONE (09:47)
[2022-08-26] MEDS ORDERED: LORazepam 2 MG/ML SYR.(CARPUJECT) ONE ×2 (09:47→11:14)
[2022-08-26 09:49] LABS: #Lymphocytes 0.6 thou/uL (1.20-3.40); #Monocytes 1.4 thou/uL (0.11-0.59); #Neutrophils 11.6 thou/uL (1.40-6.50); %Eosinophils 0.1 % (0.0-10.0); %Lymphocytes 4.5 % (21.0-51.0); %Neutrophils 85.5 % (42.0-75.0); Hemoglobin 15.7 g/dL (14.0-18.0); Mean Corpuscular HGB CONC 32.5 g/dL (32.0-36.0); Mean Corpuscular Hemoglobin 32.6 pg (27.0-31.0); Mean Platelet Volume 9.6 fL (7.4-10.4); Platelet Count 103 10x3/uL (130-400); RBC Distribution Width 12.2 % (11.5-14.5); Red Blood Cell (RBC) Count 4.82 mill/uL (4.70-6.10); White Blood Cell (WBC) Count 13.6 10x3/uL (4.8-10.8)
[2022-08-26] MEDS ORDERED: Magnesium 2 GM/50 ML BAG (IN WATER) ONE (09:58)
[2022-08-26] MEDS ORDERED: Magnesium 2 GM/50 ML(in water) 2 GM in Premix Bag 1 BAG IVPB SCH ×2 (10:00→23:45)
[2022-08-26] MEDS ORDERED: Folic Acid 1 MG in Admixture Fee 1 EACH IVP SCH (10:00)
[2022-08-26 10:09] LABS: ALT (SGPT) 68 U/L (8-55); AST (SGOT) 110 U/L (5-34); Acetaminophen Less than 10.0 mcg/mL (10.0-30.0); Albumin 4.8 g/dL (3.5-5.0); Alcohol 26 mg/dL (Less than 10); Alkaline Phosphatase 128 U/L (40-110); Anion Gap 48 mmol/L (10-20); BUN (Urea Nitrogen) 24 mg/dL (8.4-25.7); Bilirubin, Total 2.3 mg/dL (0.2-1.2); Calc. Creatinine Clearance 0 mL/min (70-130); Calcium 9.3 mg/dL (7.8-10.44); Chloride 88 mmol/L (98-107); Estimated GFR 50; Globulin 3.7 g/dL (2.4-3.5); Glucose 166 mg/dL (70-105); Lipase 564 U/L (8-78); Magnesium 1.7 mg/dL (1.6-2.6); Potassium 3.3 mmol/L (3.5-5.1); Protein, Total 8.5 g/dL (6.0-8.3); Salicylate Less than 8.0 mg/dL (15.0-30.0); Sodium 141 mmol/L (136-145)
[2022-08-26 10:13] LABS: Carbon Dioxide 8 mmol/L (22-29)
[2022-08-26] MEDS ORDERED: cefTRIAXone (ROCEPHIN) 2 GM VIAL ONE (10:45)
[2022-08-26 10:55] LABS: Analyzer IN Cardio ER; Base Excess -10.5 mEq/L (-2.0 to +3.0); Calcium, Ionized (venous) 0.95 mmol/L (1.16-1.32); Chloride (VBG) 91 mmol/L (98-106); Hemoglobin (Hb) 16.4 g/dL (13.1-17.2); Potassium (VBG) 3.11 mmol/L (3.70-5.30); Sodium 137.5 mmol/L (133-146); pH (venous) 7.39 (7.32-7.43)
[2022-08-26] MEDS ORDERED: Lorazepam 1 MG TAB PO PRN (12:22)
[2022-08-26] MEDS ORDERED: Calcium Carbonate 500 MG ChewTAB PO PRN (12:22)
[2022-08-26] MEDS ORDERED: Senokot S 8.6-50 MG TAB PO PRN (12:22)
[2022-08-26] MEDS ORDERED: Lorazepam 2 MG/ML VIAL IM PRN (12:22)
[2022-08-26] MEDS ORDERED: Multivit, Therapeutic 1 TAB PO SCH (12:45)
[2022-08-26 13:42] LABS: Bacteria/HPF None Seen HPF (None Seen); Bilirubin 1+ (Negative); Blood, Urine 1+ (Negative); Clarity Clear (Clear); Glucose, Urine (Dipstick) Normal (Negative); Ketone, Urine Greater than 150 mg/dL (Negative); Leukocyte Negative Leu/uL (Negative); Nitrite Negative (Negative); Protein, Urine (Dipstick) 100 mg/dL (Neg-Trace); RBC/HPF 0-3 HPF (0-3); Specific Gravity, Urine 1.044 (1.002-1.036); Squamous Epithelial 0-3 HPF (0-3); Urobilinogen 6 mg/dL (Less than 2); WBC/HPF 0-3 HPF (0-3)
[2022-08-26] MEDS ORDERED: hydrALAZINE 20 MG/ML VIAL SLOW IVP PRN (13:42)
[2022-08-26 13:48] LABS: Amphetamine Not Detected (NotDetected); Barbiturates Screen Not Detected (NotDetected); Benzodiazepine Screen Not Detected (NotDetected); Cocaine Metabolite Screen Not Detected (NotDetected); Methadone Not Detected (NotDetected); Methamphetamine Not Detected (NotDetected); Opiate Screen Detected (NotDetected); Oxycodone Screen Not Detected (NotDetected); Phencyclidine (PCP) Not Detected (NotDetected); THC/Cannabinoid Screen Not Detected (NotDetected); Tricyclic Screen Not Detected (NotDetected)
[2022-08-26 13:58] LABS: INR-International Normal Ratio 1.1; Prothrombin Time 14.1 sec (12.0-14.7)
[2022-08-26 14:01] LABS: Lactic Acid 1.6 mmol/L (0.5-2.2)
[2022-08-26] MEDS ORDERED: Potassium Chloride 20 MEQ in Premix Bag 1 BAG IVPB SCH ×2 (14:30→17:15)
[2022-08-26 15:15] LABS: Phosphorus 1.7 mg/dL (2.3-4.7)
[2022-08-26] MEDS: Lorazepam 1 MG TAB PO SCH ×2 (15:33→18:41)
[2022-08-26] MEDS: Thiamine HCl 200 MG/2 ML VIAL SLOW IVP SCH (15:34)
[2022-08-26 16:04] LABS: Anion Gap 29 mmol/L (10-20); BUN (Urea Nitrogen) 22 mg/dL (8.4-25.7); Calc. Creatinine Clearance 0 mL/min (70-130); Calcium 7.8 mg/dL (7.8-10.44); Carbon Dioxide 15 mmol/L (22-29); Chloride 100 mmol/L (98-107); Estimated GFR 62; Glucose 145 mg/dL (70-105); Potassium 3.5 mmol/L (3.5-5.1); Sodium 140 mmol/L (136-145)
[2022-08-26] MEDS: Ondansetron PF 4 MG/2 ML Vial IVP PRN (16:17)
[2022-08-26 16:43] VITALS: BMI 21.6
[2022-08-26] MEDS ORDERED: Potassium Phosphate 30 MMOL in Sodium Chloride 0.9% 500 ML IVPB SCH (16:45)
[2022-08-26] MEDS ORDERED: Sodium Bicarbonate 150 MEQ in Dextrose 5% in Water 1,000 ML IV SCH ×2 (17:00→17:30)
[2022-08-26] MEDS: Potassium Chloride 10 MEQ in Premix Bag 1 BAG IVPB SCH ×3 (17:02→17:18)
[2022-08-26] MEDS: Chlorhexidine Gluconate 15 ML UDCUP SSP SCH ×2 (18:40→21:50)
[2022-08-26 22:37] LABS: Anion Gap 20 mmol/L (10-20); BUN (Urea Nitrogen) 17 mg/dL (8.4-25.7); Calc. Creatinine Clearance 72 mL/min (70-130); Calcium 8.1 mg/dL (7.8-10.44); Carbon Dioxide 25 mmol/L (22-29); Chloride 100 mmol/L (98-107); Estimated GFR 64; Glucose 150 mg/dL (70-105); Magnesium 1.9 mg/dL (1.6-2.6); Potassium 3.4 mmol/L (3.5-5.1); Sodium 142 mmol/L (136-145)
[2022-08-26] MEDS: Lactated Ringer's 1,000 ML IV SCH (23:26)
[2022-08-26] MEDS ORDERED: Potassium Phosphate 30 MMOL in Sodium Chloride 0.9% 250 ML 250 ML IVPB SCH (23:45)
[2022-08-27] MEDS: Potassium Chloride 10 MEQ in Premix Bag 1 BAG IVPB SCH ×2 (01:15→01:59)
[2022-08-27] MEDS: Chlorhexidine Gluconate 15 ML UDCUP SSP SCH ×6 (01:54→20:44)
[2022-08-27] MEDS: Lorazepam 1 MG TAB PO SCH ×4 (01:55→16:59)
[2022-08-27 04:15] LABS: #Monocytes 0.4 thou/uL (0.11-0.59); #Neutrophils 3.4 thou/uL (1.40-6.50); %Basophils 0.2 % (0.0-1.0); %Eosinophils 0.5 % (0.0-10.0); %Lymphocytes 21.4 % (21.0-51.0); %Monocytes 8.7 % (0.0-10.0); %Neutrophils 69.3 % (42.0-75.0); Hemoglobin 11.5 g/dL (14.0-18.0); Mean Corpuscular HGB CONC 35.6 g/dL (32.0-36.0); Mean Corpuscular Hemoglobin 35.7 pg (27.0-31.0); Mean Platelet Volume 9.5 fL (7.4-10.4); Platelet Count 50 10x3/uL (130-400); RBC Distribution Width 12.1 % (11.5-14.5); Red Blood Cell (RBC) Count 3.22 mill/uL (4.70-6.10); White Blood Cell (WBC) Count 4.9 10x3/uL (4.8-10.8)
[2022-08-27 04:17] LABS: INR-International Normal Ratio 1.1; Prothrombin Time 14.1 sec (12.0-14.7)
[2022-08-27 04:46] LABS: ALT (SGPT) 39 U/L (8-55); AST (SGOT) 67 U/L (5-34); Albumin 3.4 g/dL (3.5-5.0); Alkaline Phosphatase 86 U/L (40-110); Anion Gap 19 mmol/L (10-20); BUN (Urea Nitrogen) 15 mg/dL (8.4-25.7); Bilirubin, Direct 1.3 mg/dL (0.1-0.3); Calc. Creatinine Clearance 92 mL/min (70-130); Carbon Dioxide 27 mmol/L (22-29); Chloride 100 mmol/L (98-107); Estimated GFR 85; Globulin 2.5 g/dL (2.4-3.5); Glucose 89 mg/dL (70-105); Lipase 365 U/L (8-78); Magnesium 2.5 mg/dL (1.6-2.6); Phosphorus 2.4 mg/dL (2.3-4.7); Potassium 3.7 mmol/L (3.5-5.1); Protein, Total 5.9 g/dL (6.0-8.3); Sodium 142 mmol/L (136-145)
[2022-08-27] MEDS: Phenol 118 ML BOT PO PRN ×3 (04:56→19:57)
[2022-08-27] MEDS: Lactated Ringer's 1,000 ML IV SCH (07:12)
[2022-08-27] MEDS: Multivit, Therapeutic 1 TAB PO SCH (08:38)
[2022-08-27] MEDS: Folic Acid 1 MG TAB PO SCH (08:38)
[2022-08-27] MEDS ORDERED: Pantoprazole 40 MG VIAL IVP SCH (09:00)
[2022-08-27] MEDS ORDERED: Electrolyte Replacement Protocol 1 EACH FS SCH (10:45)
[2022-08-27] MEDS ORDERED: Electrolyte Replacement Protocol FS PRN (10:45)
[2022-08-27] MEDS ORDERED: Lorazepam 1 MG TAB PO PRN (12:22)
[2022-08-27] MEDS: Thiamine HCl 200 MG/2 ML VIAL SLOW IVP SCH (12:33)
[2022-08-27 16:15] LABS: Actual Bicarbonate (HCO3v) 12 mEq/L (22-28)
[2022-08-27] MEDS: Acetaminophen 325 MG TAB PO PRN (20:44)
[2022-08-27] MEDS: Ondansetron PF 4 MG/2 ML Vial IVP PRN (21:46)
[2022-08-28] MEDS: Lorazepam 1 MG TAB PO SCH ×2 (00:03→06:24)
[2022-08-28] MEDS: Chlorhexidine Gluconate 15 ML UDCUP SSP SCH ×6 (01:12→20:30)
[2022-08-28] MEDS ORDERED: chlorproMAZINE HCl 25 MG TAB PO SCH (03:30)
[2022-08-28 03:33] LABS: #Eosinphils 0.1 thou/uL (0.0-0.7); #Lymphocytes 1.6 thou/uL (1.20-3.40); #Monocytes 0.3 thou/uL (0.11-0.59); #Neutrophils 2.7 thou/uL (1.40-6.50); %Basophils 0.8 % (0.0-1.0); %Eosinophils 1.7 % (0.0-10.0); %Lymphocytes 33.9 % (21.0-51.0); %Neutrophils 56.7 % (42.0-75.0); Hemoglobin 11.1 g/dL (14.0-18.0); Mean Corpuscular HGB CONC 34.6 g/dL (32.0-36.0); Mean Corpuscular Hemoglobin 34.9 pg (27.0-31.0); Mean Platelet Volume 10.1 fL (7.4-10.4); Platelet Count 46 10x3/uL (130-400); RBC Distribution Width 12.2 % (11.5-14.5); Red Blood Cell (RBC) Count 3.16 mill/uL (4.70-6.10); White Blood Cell (WBC) Count 4.8 10x3/uL (4.8-10.8)
[2022-08-28 03:55] LABS: ALT (SGPT) 30 U/L (8-55); AST (SGOT) 48 U/L (5-34); Albumin 3.1 g/dL (3.5-5.0); Alkaline Phosphatase 91 U/L (40-110); Anion Gap 13 mmol/L (10-20); BUN (Urea Nitrogen) 10 mg/dL (8.4-25.7); Bilirubin, Total 1.1 mg/dL (0.2-1.2); Calc. Creatinine Clearance 126 mL/min (70-130); Calcium 8.4 mg/dL (7.8-10.44); Carbon Dioxide 27 mmol/L (22-29); Chloride 95 mmol/L (98-107); Estimated GFR 108; Globulin 2.5 g/dL (2.4-3.5); Glucose 105 mg/dL (70-105); Magnesium 1.7 mg/dL (1.6-2.6); Protein, Total 5.6 g/dL (6.0-8.3); Sodium 132 mmol/L (136-145)
[2022-08-28 03:57] LABS: Phosphorus 1.4 mg/dL (2.3-4.7)
[2022-08-28] MEDS: Benzonatate 100 MG CAP PO PRN ×3 (04:01→20:30)
[2022-08-28] MEDS ORDERED: Potassium Chloride 20 MEQ TAB PO SCH ×2 (06:15→12:15)
[2022-08-28] MEDS ORDERED: Magnesium 2 GM/50 ML(in water) 2 GM in Premix Bag 1 BAG IVPB SCH (06:15)
[2022-08-28] MEDS: Ondansetron PF 4 MG/2 ML Vial IVP PRN ×2 (06:17→20:30)
[2022-08-28] MEDS: PHOS-NAK 1 PKT PACK PO SCH ×4 (06:24→18:15)
[2022-08-28] MEDS: Multivit, Therapeutic 1 TAB PO SCH (08:30)
[2022-08-28] MEDS: Folic Acid 1 MG TAB PO SCH (08:30)
[2022-08-28 11:10] LABS: Potassium 3.5 mmol/L (3.5-5.1)
[2022-08-28] MEDS ORDERED: Lorazepam 1 MG TAB PO PRN (12:22)
[2022-08-28] MEDS: Lorazepam 0.5 MG TAB PO SCH ×2 (12:59→18:15)
[2022-08-28] MEDS: Thiamine HCl 200 MG/2 ML VIAL SLOW IVP SCH (13:00)
[2022-08-28] MEDS: Acetaminophen 325 MG TAB PO PRN (22:40)
[2022-08-29] MEDS: Lorazepam 0.5 MG TAB PO SCH ×2 (00:53→06:08)
[2022-08-29] MEDS: Chlorhexidine Gluconate 15 ML UDCUP SSP SCH ×4 (00:54→12:48)
[2022-08-29] MEDS: Ondansetron PF 4 MG/2 ML Vial IVP PRN (06:12)
[2022-08-29 07:23] LABS: Anion Gap 15 mmol/L (10-20); BUN (Urea Nitrogen) 7 mg/dL (8.4-25.7); Calc. Creatinine Clearance 156 mL/min (70-130); Calcium 9.3 mg/dL (7.8-10.44); Carbon Dioxide 22 mmol/L (22-29); Chloride 96 mmol/L (98-107); Estimated GFR 114; Glucose 97 mg/dL (70-105); Phosphorus 3.1 mg/dL (2.3-4.7); Potassium 3.4 mmol/L (3.5-5.1); Sodium 130 mmol/L (136-145)
[2022-08-29 07:26] LABS: Magnesium 1.7 mg/dL (1.6-2.6)
[2022-08-29] MEDS ORDERED: Potassium Chloride 20 MEQ TAB PO SCH (08:00)
[2022-08-29] MEDS ORDERED: Magnesium 2 GM/50 ML(in water) 2 GM in Premix Bag 1 BAG IVPB SCH (08:00)
[2022-08-29 08:17] VITALS: BP 136/84; TEMP 98.4
[2022-08-29] MEDS ORDERED: Thiamine 100 MG TAB PO SCH (09:00)
[2022-08-29] MEDS: Multivit, Therapeutic 1 TAB PO SCH (09:00)
[2022-08-29] MEDS: Folic Acid 1 MG TAB PO SCH (09:00)
[2022-08-29] MEDS ORDERED: Lorazepam 0.5 MG TAB PO PRN (12:22)
[2022-09-02] MEDS ORDERED: cloNIDine 0.2mg/24 Hour PATCH TD SCH (09:00)
== END 2022-08-29 13:15 | disposition home or self-care (01) | DRG 896 ==
LOC: ERS 08:55 → SUATTDRO 08:55 → CCU 15:13 → T4-B 08-28 11:03
PROVIDERS: ADMIT Internal Medicine; ATTEND Family Medicine
PROC: HZ2ZZZZ Detoxification Services for Substance Abuse Treatment (ICD-10-PCS; principal; 2022-08-26)
DX: F10.139 Alcohol abuse with withdrawal, unspecified (principal); K85.20 Alcohol induced acute pancreatitis without necrosis or infection; N17.9 Acute kidney failure, unspecified; E87.20 Acidosis, unspecified; Y90.1 Blood alcohol level of 20-39 mg/100 ml; E87.6 Hypokalemia; E87.8 Other disorders of electrolyte and fluid balance, not elsewhere classified; K70.10 Alcoholic hepatitis without ascites; E83.42 Hypomagnesemia; E83.39 Other disorders of phosphorus metabolism; F10.129 Alcohol abuse with intoxication, unspecified; Z88.0 Allergy status to penicillin; Z79.899 Other long term (current) drug therapy
CPT/HCPCS: 36415; 70450; 71045; 74177; 80048; 80053; 80306; 80307; 81003; 81015; 82010; 82140; 82248; 82805; 83605; 83690; 83735; 84100; 84484; 85025; 85379; 85610; 87040; 93005; 94760; 96360; 96361; 96365; 96367; 96375; 96376; C9113; J0696; J2060; J2270; J2405; J3411; J3475; J3480; J3490; J7030; J7050; J7070; J7120; Q0161; Q9967

== ENCOUNTER 2022-12-01 08:02 | Inpatient (IN) | payer BC ==
[2022-12-01] MEDS ORDERED: Metoclopramide HCl 10 MG/2 ML VIAL ONE (08:22)
[2022-12-01] MEDS ORDERED: diphenhydrAMINE 50 MG/ML VIAL ONE (08:22)
[2022-12-01] MEDS ORDERED: Pantoprazole 40 MG VIAL ONE (08:39)
[2022-12-01] MEDS ORDERED: LORazepam 2 MG/ML SYR.(CARPUJECT) ONE ×2 (08:39→11:28)
[2022-12-01 08:41] LABS: #Monocytes 0.7 thou/uL (0.11-0.59); #Neutrophils 8.4 thou/uL (1.40-6.50); %Basophils 0.2 % (0.0-1.0); %Lymphocytes 9.6 % (21.0-51.0); %Monocytes 7.2 % (0.0-10.0); %Neutrophils 82.6 % (42.0-75.0); Hematocrit 43.3 % (42.0-52.0); Hemoglobin 15.8 g/dL (14.0-18.0); Mean Corpuscular HGB CONC 36.5 g/dL (32.0-36.0); Mean Corpuscular Hemoglobin 33.1 pg (27.0-31.0); Mean Corpuscular Volume 90.8 fl (78.0-98.0); Mean Platelet Volume 10.9 fL (7.4-10.4); Platelet Count 129 10x3/uL (130-400); RBC Distribution Width 12.6 % (11.5-14.5); Red Blood Cell (RBC) Count 4.77 mill/uL (4.70-6.10); White Blood Cell (WBC) Count 10.2 10x3/uL (4.8-10.8)
[2022-12-01 09:49] LABS: CKMB 4.7 ng/mL (0-6.6)
[2022-12-01] MEDS ORDERED: Iopamidol-370 76% 500 ML MDV (1 ML CHARGE) ONE (09:53)
[2022-12-01 10:17] LABS: ALT (SGPT) 179 U/L (8-55); AST (SGOT) 182 U/L (5-34); Alkaline Phosphatase 102 U/L (40-110); Anion Gap 38 mmol/L (10-20); BUN (Urea Nitrogen) 57 mg/dL (8.4-25.7); Bilirubin, Total 1.8 mg/dL (0.2-1.2); CK (CPK) 393 U/L (30-200); Calc. Creatinine Clearance 0 mL/min (70-130); Calcium 10.1 mg/dL (7.8-10.44); Carbon Dioxide 12 mmol/L (22-29); Chloride 87 mmol/L (98-107); Estimated GFR 32; Globulin 3.4 g/dL (2.4-3.5); Glucose 112 mg/dL (70-105); Lipase 131 U/L (8-78); Potassium 3.8 mmol/L (3.5-5.1); Protein, Total 8.4 g/dL (6.0-8.3); Sodium 133 mmol/L (136-145)
[2022-12-01] MEDS ORDERED: Thiamine HCl 200 MG/2 ML VIAL SLOW IVP SCH ×2 (11:15→11:30)
[2022-12-01] MEDS ORDERED: Lorazepam 2 MG/ML VIAL IM PRN (11:17)
[2022-12-01] MEDS ORDERED: Ondansetron PF 4 MG/2 ML Vial IVP PRN (11:17)
[2022-12-01] MEDS ORDERED: Calcium Carbonate 500 MG ChewTAB PO PRN (11:17)
[2022-12-01] MEDS ORDERED: Senokot S 8.6-50 MG TAB PO PRN (11:17)
[2022-12-01] MEDS ORDERED: Acetaminophen 325 MG TAB PO PRN (11:17)
[2022-12-01 11:28] LABS: Bacteria/HPF None Seen HPF (None Seen); Bilirubin Negative (Negative); Blood, Urine 2+ (Negative); CAUTI Indications for Culture Fever or rigors; Clarity Turbid (Clear); Glucose, Urine (Dipstick) Normal (Negative); Ketone, Urine 40 mg/dL (Negative); Leukocyte Negative Leu/uL (Negative); Nitrite Negative (Negative); Protein, Urine (Dipstick) 100 mg/dL (Neg-Trace); RBC/HPF 0-3 HPF (0-3); Specific Gravity, Urine 1.035 (1.002-1.036); Squamous Epithelial 0-3 HPF (0-3); Urobilinogen 3 mg/dL (Less than 2); WBC/HPF 0-3 HPF (0-3); pH, Urine 5.5 (5.0-9.0)
[2022-12-01] MEDS ORDERED: Sodium Bicarbonate 150 MEQ in Dextrose 5% in Water 1,000 ML IV SCH (11:30)
[2022-12-01] MEDS ORDERED: Electrolyte Replacement Protocol 1 EACH FS SCH (11:30)
[2022-12-01 11:31] LABS: Actual Bicarbonate (HCO3v) 17.4 mEq/L (22-28); Calcium, Ionized (venous) 0.96 mmol/L (1.16-1.32); Chloride (VBG) 92 mmol/L (98-106); Hematocrit-VBG 45 % (42.0-52.0); Hemoglobin (Hb) 15.2 g/dL (13.1-17.2); Potassium (VBG) 3.81 mmol/L (3.70-5.30); Sodium 131.3 mmol/L (133-146)
[2022-12-01 11:32] LABS: Urine Culture Reflex No No
[2022-12-01 11:35] LABS: Magnesium 1.8 mg/dL (1.6-2.6)
[2022-12-01] MEDS ORDERED: Dexmedetomidine In 0.9 % NaCl 100 ML IVPB SCH (12:00)
[2022-12-01 12:31] LABS: INR-International Normal Ratio 0.9; Prothrombin Time 12.9 sec (12.0-14.7)
[2022-12-01 12:32] LABS: PTT 27.2 sec (22.9-36.1)
[2022-12-01] MEDS ORDERED: Sodium Chloride 0.9% 1,000 ML IV SCH (13:00)
[2022-12-01] MEDS ORDERED: Multivit, Therapeutic 1 TAB PO SCH (13:00)
[2022-12-01] MEDS ORDERED: Folic Acid 1 MG TAB PO SCH (13:00)
[2022-12-01] MEDS: Lorazepam 1 MG TAB PO PRN ×3 (13:10→20:57)
[2022-12-01] MEDS ORDERED: Magnesium 2 GM/50 ML(in water) 2 GM in Premix Bag 1 BAG IVPB SCH (13:30)
[2022-12-01 14:12] VITALS: BMI 22.4
[2022-12-01] MEDS: chlordiazePOXIDE HCl 25 MG CAP PO SCH ×2 (14:56→20:49)
[2022-12-01 16:57] LABS: Amphetamine Not Detected (NotDetected); Barbiturates Screen Not Detected (NotDetected); Benzodiazepine Screen Detected (NotDetected); Cocaine Metabolite Screen Not Detected (NotDetected); Methadone Not Detected (NotDetected); Methamphetamine Not Detected (NotDetected); Opiate Screen Not Detected (NotDetected); Oxycodone Screen Not Detected (NotDetected); Phencyclidine (PCP) Not Detected (NotDetected); THC/Cannabinoid Screen Not Detected (NotDetected); Tricyclic Screen Not Detected (NotDetected)
[2022-12-01 17:02] LABS: Lactic Acid 1.9 mmol/L (0.5-2.2)
[2022-12-01 17:42] LABS: Anion Gap 22 mmol/L (10-20); BUN (Urea Nitrogen) 41 mg/dL (8.4-25.7); Calc. Creatinine Clearance 72 mL/min (70-130); Calcium 8.3 mg/dL (7.8-10.44); Carbon Dioxide 21 mmol/L (22-29); Chloride 94 mmol/L (98-107); Estimated GFR 57; Glucose 187 mg/dL (70-105); Magnesium 2.5 mg/dL (1.6-2.6); Potassium 3.8 mmol/L (3.5-5.1); Sodium 133 mmol/L (136-145)
[2022-12-01] MEDS: Sodium Chloride 0.9% 1,000 ML IV SCH ×2 (17:45→22:28)
[2022-12-01] MEDS ORDERED: Sodium Bicarb 50 MEQ/50 ML VIAL IVP SCH (18:15)
[2022-12-01] MEDS: Pantoprazole 40 MG VIAL IVP SCH (20:49)
[2022-12-01] MEDS ORDERED: traZODone HCl 50 MG TAB PO SCH (21:00)
[2022-12-01 21:59] LABS: Anion Gap 20 mmol/L (10-20); BUN (Urea Nitrogen) 32 mg/dL (8.4-25.7); Calc. Creatinine Clearance 91 mL/min (70-130); Calcium 8.7 mg/dL (7.8-10.44); Carbon Dioxide 25 mmol/L (22-29); Chloride 92 mmol/L (98-107); Estimated GFR 75; Glucose 101 mg/dL (70-105); Potassium 3.2 mmol/L (3.5-5.1); Sodium 134 mmol/L (136-145)
[2022-12-01] MEDS: Potassium Chloride 20 MEQ in Premix Bag 1 BAG IVPB SCH (22:28)
[2022-12-02] MEDS: Potassium Chloride 20 MEQ in Premix Bag 1 BAG IVPB SCH (00:50)
[2022-12-02] MEDS ORDERED: traMADol HCl 50 MG TAB PO PRN (00:50)
[2022-12-02] MEDS: Lorazepam 1 MG TAB PO PRN (03:15)
[2022-12-02 04:22] LABS: #Monocytes 0.4 thou/uL (0.11-0.59); #Neutrophils 3.4 thou/uL (1.40-6.50); %Basophils 0.4 % (0.0-1.0); %Eosinophils 0.2 % (0.0-10.0); %Lymphocytes 27.1 % (21.0-51.0); %Monocytes 7.9 % (0.0-10.0); %Neutrophils 64.2 % (42.0-75.0); Hematocrit 36.7 % (42.0-52.0); Mean Corpuscular HGB CONC 33.8 g/dL (32.0-36.0); Mean Corpuscular Hemoglobin 33.2 pg (27.0-31.0); Mean Platelet Volume 11.5 fL (7.4-10.4); RBC Distribution Width 12.7 % (11.5-14.5); Red Blood Cell (RBC) Count 3.74 mill/uL (4.70-6.10); White Blood Cell (WBC) Count 5.3 10x3/uL (4.8-10.8)
[2022-12-02 04:32] LABS: CRP (Inflammatory) 1.83 mg/dL (= or < 0.5)
[2022-12-02 04:35] LABS: ALT (SGPT) 92 U/L (8-55); AST (SGOT) 88 U/L (5-34); Albumin 3.4 g/dL (3.5-5.0); Alkaline Phosphatase 69 U/L (40-110); Anion Gap 17 mmol/L (10-20); BUN (Urea Nitrogen) 24 mg/dL (8.4-25.7); Bilirubin, Direct 0.9 mg/dL (0.1-0.3); Bilirubin, Total 1.8 mg/dL (0.2-1.2); Calc. Creatinine Clearance 125 mL/min (70-130); Calcium 8.5 mg/dL (7.8-10.44); Carbon Dioxide 25 mmol/L (22-29); Chloride 97 mmol/L (98-107); Estimated GFR 105; Globulin 2.6 g/dL (2.4-3.5); Glucose 91 mg/dL (70-105); Lipase 46 U/L (8-78); Magnesium 2.1 mg/dL (1.6-2.6); Phosphorus 1.1 mg/dL (2.3-4.7); Potassium 3.7 mmol/L (3.5-5.1); Sodium 135 mmol/L (136-145)
[2022-12-02 04:36] LABS: Hemoglobin 12.4 g/dL (14.0-18.0); Mean Corpuscular Volume 98.1 fl (78.0-98.0); Platelet Count 57 10x3/uL (130-400)
[2022-12-02] MEDS ORDERED: Potassium Phosphate 22 MMOL in Sodium Chloride 0.9% 250 ML 250 ML IVPB SCH (05:15)
[2022-12-02] MEDS: Sodium Chloride 0.9% 1,000 ML IV SCH (05:22)
[2022-12-02 08:02] VITALS: TEMP 98.5
[2022-12-02] MEDS: chlordiazePOXIDE HCl 25 MG CAP PO SCH ×2 (08:34→16:03)
[2022-12-02] MEDS: Pantoprazole 40 MG VIAL IVP SCH (08:35)
[2022-12-02] MEDS ORDERED: Folic Acid 1 MG TAB PO SCH (09:00)
[2022-12-02] MEDS ORDERED: Multivit, Therapeutic 1 TAB PO SCH (09:00)
[2022-12-02] MEDS ORDERED: Gabapentin 300 MG CAP PO SCH (09:00)
[2022-12-02] MEDS ORDERED: Sodium Chloride 0.9% 1,000 ML IV SCH (11:00)
[2022-12-02] MEDS ORDERED: Lorazepam 1 MG TAB PO PRN (11:17)
[2022-12-02] MEDS ORDERED: Thiamine HCl 200 MG/2 ML VIAL SLOW IVP SCH (12:00)
[2022-12-02 15:56] LABS: Phosphorus 1.6 mg/dL (2.3-4.7)
[2022-12-03] MEDS ORDERED: Lorazepam 1 MG TAB PO PRN (11:17)
[2022-12-04] MEDS ORDERED: Thiamine 100 MG TAB PO SCH (09:00)
[2022-12-04] MEDS ORDERED: Lorazepam 0.5 MG TAB PO PRN (11:17)
== END 2022-12-02 17:05 | disposition home or self-care (01) | DRG 438 ==
LOC: SUATTDRO 08:02 → ERS 08:02 → CCU 12:43 → IMCU/EMU 12-02 04:09
PROVIDERS: ADMIT Internal Medicine; ATTEND Internal Medicine
DX: K85.20 Alcohol induced acute pancreatitis without necrosis or infection (principal); G93.41 Metabolic encephalopathy; N17.9 Acute kidney failure, unspecified; E87.20 Acidosis, unspecified; E87.1 Hypo-osmolality and hyponatremia; K70.10 Alcoholic hepatitis without ascites; E88.89 Other specified metabolic disorders; T73.0XXA Starvation, initial encounter; E86.0 Dehydration; E86.9 Volume depletion, unspecified; I10 Essential (primary) hypertension; K21.9 Gastro-esophageal reflux disease without esophagitis; G89.29 Other chronic pain; M54.9 Dorsalgia, unspecified; F41.9 Anxiety disorder, unspecified; G51.0 Bell's palsy; N45.1 Epididymitis; R74.01 Elevation of levels of liver transaminase levels; F17.220 Nicotine dependence, chewing tobacco, uncomplicated; F10.20 Alcohol dependence, uncomplicated; Z88.0 Allergy status to penicillin; Z79.899 Other long term (current) drug therapy; Z90.49 Acquired absence of other specified parts of digestive tract
CPT/HCPCS: 36415; 70450; 71045; 74177; 80053; 80306; 81001; 82248; 82550; 82553; 82805; 83605; 83690; 83735; 84100; 84484; 85025; 85610; 85730; 86140; 93005; 96361; 96365; 96375; 96376; C9113; J1200; J2060; J2405; J2765; J3411; J3475; J3480; J7050; J7070; Q9967

== ENCOUNTER 2022-12-22 03:29 | Emergency (ER) | payer BC ==
[2022-12-22] MEDS ORDERED: Multivitamins, Adult 10 ML, Thiamine HCl 100 MG, Folic Acid 1 MG in Dextrose 5 %-0.45 %... IV SCH (04:15)
[2022-12-22 04:32] LABS: #Eosinphils 0.1 thou/uL (0.0-0.7); #Monocytes 0.3 thou/uL (0.11-0.59); #Neutrophils 1.3 thou/uL (1.40-6.50); %Basophils 0.9 % (0.0-1.0); %Eosinophils 1.8 % (0.0-10.0); %Lymphocytes 51.5 % (21.0-51.0); %Monocytes 9.1 % (0.0-10.0); %Neutrophils 36.4 % (42.0-75.0); Hematocrit 41.9 % (42.0-52.0); Hemoglobin 14.3 g/dL (14.0-18.0); Mean Corpuscular HGB CONC 34.1 g/dL (32.0-36.0); Mean Corpuscular Hemoglobin 32.4 pg (27.0-31.0); Mean Platelet Volume 9.4 fL (7.4-10.4); Platelet Count 120 10x3/uL (130-400); RBC Distribution Width 13.7 % (11.5-14.5); Red Blood Cell (RBC) Count 4.41 mill/uL (4.70-6.10); White Blood Cell (WBC) Count 3.4 10x3/uL (4.8-10.8)
[2022-12-22 04:52] LABS: Acetaminophen Less than 10 mcg/mL (10.0-30.0); Alcohol 390.6 mg/dL (Less than 10); Salicylate Less than 8.0 mg/dL (15.0-30.0)
[2022-12-22 04:59] LABS: ALT (SGPT) 132 U/L (8-55); AST (SGOT) 172 U/L (5-34); Albumin 4.3 g/dL (3.5-5.0); Alcohol 390.1 mg/dL (Less than 10); Alkaline Phosphatase 103 U/L (40-110); Anion Gap 15 mmol/L (10-20); BUN (Urea Nitrogen) 9 mg/dL (8.4-25.7); Bilirubin, Total 0.5 mg/dL (0.2-1.2); CK (CPK) 123 U/L (30-200); Calc. Creatinine Clearance 0 mL/min (70-130); Carbon Dioxide 23 mmol/L (22-29); Chloride 108 mmol/L (98-107); Estimated GFR 105; Globulin 3.5 g/dL (2.4-3.5); Glucose 88 mg/dL (70-105); Potassium 4.1 mmol/L (3.5-5.1); Protein, Total 7.8 g/dL (6.0-8.3); Sodium 142 mmol/L (136-145)
[2022-12-22 05:01] LABS: Bacteria/HPF None Seen HPF (None Seen); Bilirubin Negative (Negative); Blood, Urine Negative (Negative); CAUTI Indications for Culture Dysuria,urgency,freq; Clarity Clear (Clear); Glucose, Urine (Dipstick) Normal (Negative); Ketone, Urine Negative (Negative); Leukocyte Negative Leu/uL (Negative); Nitrite Negative (Negative); Protein, Urine (Dipstick) Negative (Neg-Trace); RBC/HPF None Seen HPF (0-3); Specific Gravity, Urine 1.007 (1.002-1.036); Squamous Epithelial None Seen HPF (0-3); Urobilinogen Normal mg/dL (Less than 2); WBC/HPF 0-3 HPF (0-3); pH, Urine 5.5 (5.0-9.0)
[2022-12-22 05:04] LABS: Urine Culture Reflex No No
[2022-12-22 05:10] LABS: Amphetamine Not Detected (NotDetected); Barbiturates Screen Not Detected (NotDetected); Benzodiazepine Screen Detected (NotDetected); Cocaine Metabolite Screen Not Detected (NotDetected); Methadone Not Detected (NotDetected); Methamphetamine Not Detected (NotDetected); Opiate Screen Not Detected (NotDetected); Oxycodone Screen Not Detected (NotDetected); Phencyclidine (PCP) Not Detected (NotDetected); THC/Cannabinoid Screen Not Detected (NotDetected); Tricyclic Screen Not Detected (NotDetected)
[2022-12-22] MEDS ORDERED: Lisinopril 10 MG TAB ONE (14:33)
[2022-12-22] MEDS ORDERED: Gabapentin 300 MG CAP PO SCH (14:45)
[2022-12-22] MEDS ORDERED: Ondansetron ODT 4 MG TAB ONE (15:32)
[2022-12-22] MEDS ORDERED: Loratadine/Pseudoephedrine 10/240 mg Tablet PO SCH (16:00)
== END 2022-12-23 10:04 ==
LOC: ERS 03:29
DX: R45.851 Suicidal ideations (principal); I10 Essential (primary) hypertension; F17.220 Nicotine dependence, chewing tobacco, uncomplicated; Z79.899 Other long term (current) drug therapy
CPT/HCPCS: 36415; 71045; 80053; 80306; 80307; 81001; 82550; 84443; 84484; 85025; 93005; 96365; 96366; J3411; J7042; Q0162

== ENCOUNTER 2023-03-31 17:39 | Inpatient (IN) | payer BC ==
[2023-03-31] MEDS ORDERED: Metoclopramide HCl 10 MG/2 ML VIAL ONE (18:13)
[2023-03-31] MEDS ORDERED: Morphine 4 MG/ML VIAL ONE ×2 (18:13→20:01)
[2023-03-31 18:35] LABS: #Monocytes 0.3 thou/uL (0.11-0.59); #Neutrophils 4.9 thou/uL (1.40-6.50); %Basophils 0.7 % (0.0-1.0); %Lymphocytes 9.5 % (21.0-51.0); %Monocytes 4.8 % (0.0-10.0); %Neutrophils 84.7 % (42.0-75.0); Hematocrit 44.5 % (42.0-52.0); Hemoglobin 15.1 g/dL (14.0-18.0); Mean Corpuscular HGB CONC 33.9 g/dL (32.0-36.0); Mean Corpuscular Hemoglobin 34.2 pg (27.0-31.0); Mean Corpuscular Volume 100.9 fl (78.0-98.0); Mean Platelet Volume 10.3 fL (7.4-10.4); Platelet Count 124 10x3/uL (130-400); Red Blood Cell (RBC) Count 4.41 mill/uL (4.70-6.10); White Blood Cell (WBC) Count 5.8 10x3/uL (4.8-10.8)
[2023-03-31 19:03] LABS: ALT (SGPT) 73 U/L (8-55); AST (SGOT) 149 U/L (5-34); Albumin 5.3 g/dL (3.5-5.0); Alkaline Phosphatase 126 U/L (40-110); Anion Gap 34 mmol/L (10-20); BUN (Urea Nitrogen) 18 mg/dL (8.4-25.7); Calc. Creatinine Clearance 0 mL/min (70-130); Calcium 9.4 mg/dL (7.8-10.44); Carbon Dioxide 14 mmol/L (22-29); Chloride 94 mmol/L (98-107); Estimated GFR 71; Globulin 3.2 g/dL (2.4-3.5); Glucose 106 mg/dL (70-105); Lipase 8 U/L (8-78); Potassium 4.3 mmol/L (3.5-5.1); Protein, Total 8.5 g/dL (6.0-8.3); Sodium 138 mmol/L (136-145)
[2023-03-31 19:39] LABS: Troponin I Less than 0.010 ng/mL (< 0.028)
[2023-03-31 19:46] LABS: Bilirubin 1+ (Negative); Blood, Urine 1+ (Negative); CAUTI Indications for Culture Pelvic or flank pain; Clarity Clear (Clear); Glucose, Urine (Dipstick) Normal (Negative); Ketone, Urine Greater than 150 mg/dL (Negative); Leukocyte Negative Leu/uL (Negative); Mucous/LPF Rare LPF (<2+); Nitrite Negative (Negative); Protein, Urine (Dipstick) 100 mg/dL (Neg-Trace); RBC/HPF 0-3 HPF (0-3); Renal Epithelial 0-3 HPF (None Seen); Squamous Epithelial 0-3 HPF (0-3); WBC/HPF 0-3 HPF (0-3)
[2023-03-31 19:48] LABS: Specific Gravity, Urine Greater than 1.060 (1.002-1.036)
[2023-03-31 19:54] LABS: Bacteria/HPF Rare-Few HPF (None Seen)
[2023-03-31 19:55] LABS: Urine Culture Reflex No No
[2023-03-31] MEDS ORDERED: Ondansetron PF 4 MG/2 ML Vial ONE (21:22)
[2023-03-31] MEDS ORDERED: LORazepam 2 MG/ML SYR.(CARPUJECT) ONE (21:22)
[2023-03-31] MEDS ORDERED: ADMIXTURE FEE IVPB SCH (21:30)
[2023-03-31] MEDS ORDERED: chlordiazePOXIDE HCl 25 MG CAP ONE (21:30)
[2023-03-31] MEDS ORDERED: THIAMINE HCL IVPB SCH (21:30)
[2023-03-31] MEDS ORDERED: SODIUM CHLORIDE IVPB SCH (21:30)
[2023-03-31 21:41] LABS: Amphetamine Not Detected (NotDetected); Barbiturates Screen Not Detected (NotDetected); Benzodiazepine Screen Detected (NotDetected); Cocaine Metabolite Screen Not Detected (NotDetected); Methadone Not Detected (NotDetected); Methamphetamine Not Detected (NotDetected); Opiate Screen Detected (NotDetected); Oxycodone Screen Not Detected (NotDetected); Phencyclidine (PCP) Not Detected (NotDetected); THC/Cannabinoid Screen Not Detected (NotDetected); Tricyclic Screen Not Detected (NotDetected)
[2023-03-31] MEDS ORDERED: Folic Acid 1 MG in Sodium Chloride 0.9% 50 ML IV SCH (21:45)
[2023-03-31 22:27] LABS: Acetaminophen Less than 10 mcg/mL (10.0-30.0); Alcohol Less than 10.0 mg/dL (Less than 10); Salicylate Less than 8.0 mg/dL (15.0-30.0)
[2023-03-31] MEDS ORDERED: Ondansetron PF 4 MG/2 ML Vial IVP PRN (22:50)
[2023-03-31] MEDS ORDERED: Lorazepam 2 MG/ML VIAL IM PRN (22:53)
[2023-03-31] MEDS ORDERED: Lorazepam 1 MG TAB PO PRN (22:53)
[2023-03-31] MEDS ORDERED: Acetaminophen 500 MG TAB PO PRN (22:59)
[2023-03-31] MEDS ORDERED: Pantoprazole 40 MG VIAL IVP SCH (23:00)
[2023-03-31] MEDS ORDERED: Thiamine HCl 200 MG/2 ML VIAL SLOW IVP SCH (23:00)
[2023-03-31] MEDS ORDERED: Electrolyte Replacement Protocol 1 EACH FS SCH (23:00)
[2023-04-01 00:12] VITALS: BMI 22.1
[2023-04-01] MEDS ORDERED: Thiamine HCl 200 MG/2 ML VIAL ONE (00:34)
[2023-04-01] MEDS ORDERED: Pantoprazole 40 MG VIAL ONE (00:34)
[2023-04-01 00:42] LABS: Magnesium 1.4 mg/dL (1.6-2.6)
[2023-04-01] MEDS: Sodium Chloride 0.9% 1,000 ML IV SCH ×4 (00:47→14:14)
[2023-04-01] MEDS ORDERED: Magnesium 2 GM/50 ML(in water) 2 GM in Premix 1 BAG IVPB SCH (03:45)
[2023-04-01] MEDS ORDERED: Magnesium 2 GM/50 ML BAG (IN WATER) ONE (03:58)
[2023-04-01 04:10] VITALS: BP 122/89
[2023-04-01 04:43] LABS: #Monocytes 0.6 thou/uL (0.11-0.59); #Neutrophils 2.8 thou/uL (1.40-6.50); %Basophils 0.6 % (0.0-1.0); %Eosinophils 0.4 % (0.0-10.0); %Lymphocytes 34.9 % (21.0-51.0); %Monocytes 11.6 % (0.0-10.0); %Neutrophils 52.1 % (42.0-75.0); Mean Corpuscular HGB CONC 35.1 g/dL (32.0-36.0); Mean Corpuscular Hemoglobin 34.6 pg (27.0-31.0); Mean Corpuscular Volume 98.8 fl (78.0-98.0); RBC Distribution Width 12.7 % (11.5-14.5); Red Blood Cell (RBC) Count 3.32 mill/uL (4.70-6.10); White Blood Cell (WBC) Count 5.4 10x3/uL (4.8-10.8)
[2023-04-01 04:51] LABS: INR-International Normal Ratio 1.1; Prothrombin Time 14.4 sec (12.0-14.7)
[2023-04-01 04:52] LABS: PTT 26.3 sec (22.9-36.1)
[2023-04-01 04:55] LABS: Platelet Count 82 10x3/uL (130-400)
[2023-04-01 04:57] LABS: Hematocrit 32.8 % (42.0-52.0); Hemoglobin 11.5 g/dL (14.0-18.0)
[2023-04-01 05:24] LABS: ALT (SGPT) 55 U/L (8-55); AST (SGOT) 93 U/L (5-34); Albumin 4.1 g/dL (3.5-5.0); Alkaline Phosphatase 91 U/L (40-110); Anion Gap 17 mmol/L (10-20); BUN (Urea Nitrogen) 15 mg/dL (8.4-25.7); Bilirubin, Total 2.5 mg/dL (0.2-1.2); Calc. Creatinine Clearance 97 mL/min (70-130); Calcium 8.4 mg/dL (7.8-10.44); Carbon Dioxide 24 mmol/L (22-29); Chloride 97 mmol/L (98-107); Estimated GFR 86; Globulin 2.5 g/dL (2.4-3.5); Glucose 102 mg/dL (70-105); Magnesium 1.5 mg/dL (1.6-2.6); Potassium 3.7 mmol/L (3.5-5.1); Protein, Total 6.6 g/dL (6.0-8.3); Sodium 134 mmol/L (136-145)
[2023-04-01 05:34] LABS: CK (CPK) 1191 U/L (30-200)
[2023-04-01 05:36] LABS: Phosphorus 1.5 mg/dL (2.3-4.7)
[2023-04-01] MEDS ORDERED: levETIRAcetam 500 MG TAB PO SCH ×2 (06:30→21:00)
[2023-04-01 08:06] VITALS: TEMP 98.9
[2023-04-01] MEDS: PHOS-NAK 1 PKT PACK PO SCH ×3 (09:00→15:54)
[2023-04-01] MEDS ORDERED: Multivit, Therapeutic 1 TAB PO SCH (09:00)
[2023-04-01] MEDS ORDERED: Pantoprazole 40 MG VIAL IVP SCH (09:00)
[2023-04-01] MEDS ORDERED: Folic Acid 1 MG TAB PO SCH (09:00)
[2023-04-01] MEDS: chlordiazePOXIDE HCl 25 MG CAP PO SCH ×2 (09:27→15:55)
[2023-04-01] MEDS ORDERED: Lorazepam 1 MG TAB PO PRN (22:53)
[2023-04-02] MEDS ORDERED: Lorazepam 1 MG TAB PO PRN (22:53)
[2023-04-03] MEDS ORDERED: Thiamine 100 MG TAB PO SCH (21:00)
[2023-04-03] MEDS ORDERED: Lorazepam 0.5 MG TAB PO PRN (22:53)
[2023-04-04] MEDS ORDERED: FLU VACC QS2023-24(6MOS UP)/PF 60 MCG/0.5 ML SYRINGE IM ONE (09:00)
== END 2023-04-01 20:00 | disposition home or self-care (01) | DRG 897 ==
LOC: ERS 17:39 → ERHOLD 22:44 → IMCU/EMU 04-01 04:30
PROVIDERS: ADMIT Internal Medicine; ATTEND Family Medicine
DX: F10.239 Alcohol dependence with withdrawal, unspecified (principal); E87.29 Other acidosis; M62.82 Rhabdomyolysis; I10 Essential (primary) hypertension; F41.9 Anxiety disorder, unspecified; F32.A Depression, unspecified; F17.210 Nicotine dependence, cigarettes, uncomplicated; K21.9 Gastro-esophageal reflux disease without esophagitis; F39 Unspecified mood [affective] disorder; G89.29 Other chronic pain; R74.8 Abnormal levels of other serum enzymes; E86.0 Dehydration; Z90.49 Acquired absence of other specified parts of digestive tract; Z88.0 Allergy status to penicillin; Z79.899 Other long term (current) drug therapy
CPT/HCPCS: 36415; 70450; 71045; 74177; 80053; 80306; 80307; 81001; 82010; 82550; 83605; 83690; 83735; 84100; 84484; 85025; 85610; 85730; 93005; C9113; J2060; J2270; J2405; J2765; J3411; J3475; J3490; J7050

== ENCOUNTER 2023-05-15 08:31 | Observation (INO) | payer BC ==
[2023-05-15] MEDS ORDERED: Pantoprazole 40 MG VIAL ONE (09:05)
[2023-05-15 09:30] LABS: PTT 25.2 sec (22.9-36.1); Prothrombin Time 13.6 sec (12.0-14.7)
[2023-05-15 09:54] LABS: Troponin I 0.013 ng/mL (< 0.028)
[2023-05-15] MEDS ORDERED: Multivitamins, Adult 10 ML, Thiamine HCl 100 MG, Folic Acid 1 MG in Dextrose 5 %-0.45 %... IV SCH (10:00)
[2023-05-15] MEDS ORDERED: Iopamidol-370 76% 500 ML MDV (1 ML CHARGE) ONE (10:31)
[2023-05-15 10:57] LABS: #Monocytes 1.1 thou/uL (0.11-0.59); #Neutrophils 6.8 thou/uL (1.40-6.50); %Basophils 0.2 % (0.0-1.0); %Eosinophils 0.1 % (0.0-10.0); %Lymphocytes 13.7 % (21.0-51.0); %Monocytes 12.2 % (0.0-10.0); %Neutrophils 72.9 % (42.0-75.0); Hematocrit 41.7 % (42.0-52.0); Mean Corpuscular Hemoglobin 33.3 pg (27.0-31.0); Mean Corpuscular Volume 92.7 fl (78.0-98.0); Mean Platelet Volume 11.8 fL (7.4-10.4); RBC Distribution Width 11.7 % (11.5-14.5); White Blood Cell (WBC) Count 9.3 10x3/uL (4.8-10.8)
[2023-05-15 10:58] LABS: Platelet Count 66 10x3/uL (130-400)
[2023-05-15 11:00] LABS: SARS-CoV-2 NAA Rapid Test Not Detected (NotDetected)
[2023-05-15 11:20] LABS: Acetaminophen Less than 10 mcg/mL (10.0-30.0); Alcohol Less than 10.0 mg/dL (Less than 10); Lipase 121 U/L (8-78); Magnesium 1.6 mg/dL (1.6-2.6); Salicylate Less than 8.0 mg/dL (15.0-30.0)
[2023-05-15 11:21] LABS: ALT (SGPT) 74 U/L (8-55); AST (SGOT) 73 U/L (5-34); Albumin 4.2 g/dL (3.5-5.0); Alkaline Phosphatase 116 U/L (40-110); Anion Gap 29 mmol/L (10-20); BUN (Urea Nitrogen) 37 mg/dL (8.4-25.7); Bilirubin, Total 2.5 mg/dL (0.2-1.2); CK (CPK) 148 U/L (30-200); Calc. Creatinine Clearance 0 mL/min (70-130); Calcium 8.3 mg/dL (7.8-10.44); Carbon Dioxide 23 mmol/L (22-29); Chloride 82 mmol/L (98-107); Estimated GFR 51; Globulin 3.3 g/dL (2.4-3.5); Glucose 123 mg/dL (70-105); Potassium 2.9 mmol/L (3.5-5.1); Protein, Total 7.5 g/dL (6.0-8.3); Sodium 131 mmol/L (136-145)
[2023-05-15 12:19] LABS: Bacteria/HPF None Seen HPF (None Seen); Bilirubin 2+ (Negative); Blood, Urine 2+ (Negative); CAUTI Indications for Culture Dysuria,urgency,freq; Clarity Turbid (Clear); Glucose, Urine (Dipstick) Normal (Negative); Ketone, Urine 80 mg/dL (Negative); Leukocyte Negative Leu/uL (Negative); Nitrite Negative (Negative); Protein, Urine (Dipstick) 200 mg/dL (Neg-Trace); RBC/HPF 0-3 HPF (0-3); Specific Gravity, Urine 1.031 (1.002-1.036); Squamous Epithelial 0-3 HPF (0-3); Urobilinogen 12 mg/dL (Less than 2)
[2023-05-15 12:21] LABS: Urine Culture Reflex No No
[2023-05-15 13:02] LABS: Lactic Acid 1.9 mmol/L (0.5-2.2)
[2023-05-15] MEDS ORDERED: LORazepam 2 MG/ML SYR.(CARPUJECT) ONE (13:23)
[2023-05-15] MEDS ORDERED: Potassium Chloride 20 MEQ TAB ONE ×2 (13:23→18:00)
[2023-05-15] MEDS ORDERED: Potassium Chloride 20 MEQ (100 mL) BAG ONE (13:23)
[2023-05-15] MEDS ORDERED: Lorazepam 2 MG/ML VIAL IM PRN (14:33)
[2023-05-15] MEDS ORDERED: Lorazepam 1 MG TAB PO PRN (14:33)
[2023-05-15] MEDS ORDERED: Ondansetron ODT 4 MG TAB PO PRN (14:33)
[2023-05-15] MEDS ORDERED: Electrolyte Replacement Protocol 1 EACH FS SCH (14:45)
[2023-05-15] MEDS ORDERED: Lactated Ringer's 1,000 ML IV SCH (15:00)
[2023-05-15 15:34] LABS: Amphetamine Not Detected (NotDetected); Barbiturates Screen Not Detected (NotDetected); Benzodiazepine Screen Detected (NotDetected); Cocaine Metabolite Screen Not Detected (NotDetected); Methadone Not Detected (NotDetected); Methamphetamine Not Detected (NotDetected); Opiate Screen Not Detected (NotDetected); Oxycodone Screen Not Detected (NotDetected); Phencyclidine (PCP) Not Detected (NotDetected); THC/Cannabinoid Screen Not Detected (NotDetected); Tricyclic Screen Not Detected (NotDetected)
[2023-05-15] MEDS ORDERED: Electrolyte Replacement Protocol FS PRN (15:45)
[2023-05-15 16:47] LABS: Troponin I 0.022 ng/mL (< 0.028)
[2023-05-15 16:49] LABS: Phosphorus Less than 1.0 mg/dL (2.3-4.7)
[2023-05-15] MEDS ORDERED: Lorazepam 1 MG TAB ONE (17:05)
[2023-05-15] MEDS ORDERED: Thiamine HCl 200 MG/2 ML VIAL ONE (17:05)
[2023-05-15] MEDS: Lorazepam 1 MG TAB PO SCH ×3 (17:11→23:03)
[2023-05-15] MEDS ORDERED: Potassium Phosphate 12 MMOL in Sodium Chloride 0.9% 100 ML IVPB SCH (17:30)
[2023-05-15] MEDS ORDERED: Magnesium 2 GM/50 ML(in water) 2 GM in Premix 1 BAG IVPB SCH (17:30)
[2023-05-15] MEDS ORDERED: Potassium Chloride 20 MEQ TAB PO SCH (17:30)
[2023-05-15] MEDS ORDERED: Thiamine HCl 200 MG/2 ML VIAL SLOW IVP SCH (18:00)
[2023-05-15] MEDS ORDERED: Magnesium 2 GM/50 ML BAG (IN WATER) ONE (18:00)
[2023-05-15] MEDS ORDERED: SODIUM CHLORIDE 0.9% IVPB SCH (22:00)
[2023-05-15] MEDS ORDERED: POTASSIUM PHOSPHATE IVPB SCH (22:00)
[2023-05-16 02:50] VITALS: BMI 20.1
[2023-05-16] MEDS: Lorazepam 1 MG TAB PO SCH (05:49)
[2023-05-16 06:22] LABS: #Monocytes 0.5 thou/uL (0.11-0.59); #Neutrophils 2.5 thou/uL (1.40-6.50); %Eosinophils 0.2 % (0.0-10.0); %Lymphocytes 30.4 % (21.0-51.0); %Monocytes 11.1 % (0.0-10.0); %Neutrophils 57.4 % (42.0-75.0); Mean Corpuscular HGB CONC 35.8 g/dL (32.0-36.0); Mean Corpuscular Hemoglobin 33.4 pg (27.0-31.0); Mean Corpuscular Volume 93.3 fl (78.0-98.0); Mean Platelet Volume 12.3 fL (7.4-10.4); RBC Distribution Width 11.9 % (11.5-14.5); Red Blood Cell (RBC) Count 3.44 mill/uL (4.70-6.10); White Blood Cell (WBC) Count 4.3 10x3/uL (4.8-10.8)
[2023-05-16 06:51] LABS: Hemoglobin 11.5 g/dL (14.0-18.0); Platelet Count 47 10x3/uL (130-400)
[2023-05-16 06:52] LABS: ALT (SGPT) 50 U/L (8-55); AST (SGOT) 52 U/L (5-34); Albumin 3.4 g/dL (3.5-5.0); Alkaline Phosphatase 94 U/L (40-110); Anion Gap 13 mmol/L (10-20); BUN (Urea Nitrogen) 22 mg/dL (8.4-25.7); Bilirubin, Total 1.7 mg/dL (0.2-1.2); Calc. Creatinine Clearance 105 mL/min (70-130); Calcium 8.2 mg/dL (7.8-10.44); Carbon Dioxide 30 mmol/L (22-29); Chloride 92 mmol/L (98-107); Estimated GFR 103; Globulin 2.8 g/dL (2.4-3.5); Glucose 99 mg/dL (70-105); Magnesium 2.2 mg/dL (1.6-2.6); Potassium 3.3 mmol/L (3.5-5.1); Protein, Total 6.2 g/dL (6.0-8.3); Sodium 132 mmol/L (136-145)
[2023-05-16 06:56] LABS: Phosphorus 1.2 mg/dL (2.3-4.7)
[2023-05-16] MEDS ORDERED: PHOS-NAK 1 PKT PACK PO SCH (08:00)
[2023-05-16] MEDS ORDERED: Potassium Chloride 20 MEQ TAB PO SCH (08:00)
[2023-05-16] MEDS ORDERED: Folic Acid 1 MG TAB PO SCH (09:00)
[2023-05-16] MEDS ORDERED: Multivit, Therapeutic 1 TAB PO SCH (09:00)
[2023-05-16 10:52] LABS: Potassium 3.4 mmol/L (3.5-5.1); Sodium 129 mmol/L (136-145)
[2023-05-16 10:53] LABS: Calcium 8.3 mg/dL (7.8-10.44); Chloride 92 mmol/L (98-107); Glucose 123 mg/dL (70-105)
[2023-05-16 10:55] LABS: Anion Gap 15 mmol/L (10-20); Carbon Dioxide 25 mmol/L (22-29)
[2023-05-16 10:57] LABS: Calc. Creatinine Clearance 121 mL/min (70-130); Estimated GFR 107
[2023-05-16 10:58] LABS: BUN (Urea Nitrogen) 18 mg/dL (8.4-25.7)
[2023-05-16 11:58] VITALS: BP 110/71; TEMP 98
[2023-05-16] MEDS ORDERED: Lorazepam 1 MG TAB PO PRN (14:33)
[2023-05-16] MEDS ORDERED: Lorazepam 1 MG TAB PO SCH (18:00)
[2023-05-17] MEDS ORDERED: Lorazepam 1 MG TAB PO PRN (14:33)
[2023-05-17] MEDS ORDERED: Lorazepam 0.5 MG TAB PO SCH ×2 (14:45→18:00)
[2023-05-18] MEDS ORDERED: Thiamine 100 MG TAB PO SCH (09:00)
[2023-05-18] MEDS ORDERED: Lorazepam 0.5 MG TAB PO PRN (14:33)
== END 2023-05-16 12:30 | disposition home or self-care (01) ==
LOC: ERS 08:31 → ERHOLD 14:33 → 2SW 21:23
PROVIDERS: ADMIT Student in an Organized Health Care Education/Training Program; ATTEND Student in an Organized Health Care Education/Training Program
DX: R00.0 Tachycardia, unspecified (principal); F10.10 Alcohol abuse, uncomplicated; R11.2 Nausea with vomiting, unspecified; N17.9 Acute kidney failure, unspecified; I10 Essential (primary) hypertension; E83.42 Hypomagnesemia; E87.1 Hypo-osmolality and hyponatremia; E87.6 Hypokalemia; D69.6 Thrombocytopenia, unspecified; Z88.0 Allergy status to penicillin; Z79.899 Other long term (current) drug therapy; Z90.49 Acquired absence of other specified parts of digestive tract
CPT/HCPCS: 36415; 70450; 71045; 74177; 80053; 80306; 80307; 81001; 82550; 83605; 83690; 83735; 84100; 84484; 85025; 85610; 85730; 93005; 93010; 96361; 96365; 96366; 96368; 96375; 96376; C9113; G0378; J2060; J3411; J3475; J3480; J3490; J7042; J7050; J7120; Q9967

== ENCOUNTER 2023-06-29 19:39 | Inpatient (IN) | payer BC ==
[2023-06-29] MEDS ORDERED: chlordiazePOXIDE HCl 25 MG CAP ONE (20:11)
[2023-06-29 20:41] LABS: #Monocytes 0.5 thou/uL (0.11-0.59); #Neutrophils 4.8 thou/uL (1.40-6.50); %Basophils 0.2 % (0.0-1.0); %Eosinophils 0.2 % (0.0-10.0); %Lymphocytes 13.5 % (21.0-51.0); %Monocytes 7.7 % (0.0-10.0); %Neutrophils 77.9 % (42.0-75.0); Hemoglobin 13.3 g/dL (14.0-18.0); Mean Corpuscular HGB CONC 35.9 g/dL (32.0-36.0); Mean Corpuscular Volume 94.6 fl (78.0-98.0); Mean Platelet Volume 10.5 fL (7.4-10.4); Platelet Count 102 10x3/uL (130-400); RBC Distribution Width 14.1 % (11.5-14.5); Red Blood Cell (RBC) Count 3.91 mill/uL (4.70-6.10); White Blood Cell (WBC) Count 6.2 10x3/uL (4.8-10.8)
[2023-06-29 20:57] LABS: INR-International Normal Ratio 1.1; PTT 23.4 sec (22.9-36.1); Prothrombin Time 13.7 sec (12.0-14.7)
[2023-06-29 21:01] LABS: ALT (SGPT) 42 U/L (8-55); AST (SGOT) 67 U/L (5-34); Albumin 4.5 g/dL (3.5-5.0); Alkaline Phosphatase 96 U/L (40-110); Anion Gap 24 mmol/L (10-20); BUN (Urea Nitrogen) 10 mg/dL (8.4-25.7); Bilirubin, Total 2.3 mg/dL (0.2-1.2); Calc. Creatinine Clearance 0 mL/min (70-130); Calcium 9.7 mg/dL (7.8-10.44); Carbon Dioxide 17 mmol/L (22-29); Chloride 96 mmol/L (98-107); Estimated GFR 104; Globulin 3.1 g/dL (2.4-3.5); Glucose 92 mg/dL (70-105); Protein, Total 7.6 g/dL (6.0-8.3); Sodium 134 mmol/L (136-145)
[2023-06-29 21:02] LABS: Acetaminophen Less than 10 mcg/mL (10.0-30.0); Alcohol 17.2 mg/dL (Less than 10); Lipase 16 U/L (8-78); Magnesium 1.4 mg/dL (1.6-2.6); Salicylate Less than 8.0 mg/dL (15.0-30.0)
[2023-06-29] MEDS ORDERED: Thiamine HCl 200 MG/2 ML VIAL ONE (22:37)
[2023-06-29] MEDS ORDERED: diphenhydrAMINE 50 MG/ML VIAL ONE (22:37)
[2023-06-29] MEDS ORDERED: Metoclopramide HCl 10 MG (2 mL) VIAL ONE (22:37)
[2023-06-29] MEDS ORDERED: LORazepam 2 MG/ML SYR.(CARPUJECT) ONE ×2 (22:38→23:25)
[2023-06-29] MEDS ORDERED: Magnesium 2 GM/50 ML BAG (IN WATER) ONE (22:38)
[2023-06-30] MEDS ORDERED: Ondansetron PF 4 MG/2 ML Vial IVP PRN (01:08)
[2023-06-30] MEDS ORDERED: Acetaminophen 650 MG Suppository PR PRN (01:08)
[2023-06-30] MEDS ORDERED: Ondansetron ODT 4 MG TAB PO PRN (01:08)
[2023-06-30] MEDS ORDERED: Lorazepam 2 MG/ML VIAL IM PRN (01:08)
[2023-06-30] MEDS ORDERED: Electrolyte Replacement Protocol 1 EACH FS SCH (01:15)
[2023-06-30] MEDS ORDERED: Lorazepam 2 MG/ML VIAL SLOW IVP PRN (01:17)
[2023-06-30 01:54] LABS: Amphetamine Not Detected (NotDetected); Barbiturates Screen Not Detected (NotDetected); Benzodiazepine Screen Detected (NotDetected); Cocaine Metabolite Screen Not Detected (NotDetected); Methadone Not Detected (NotDetected); Methamphetamine Not Detected (NotDetected); Opiate Screen Not Detected (NotDetected); Oxycodone Screen Not Detected (NotDetected); Phencyclidine (PCP) Not Detected (NotDetected); THC/Cannabinoid Screen Not Detected (NotDetected); Tricyclic Screen Not Detected (NotDetected)
[2023-06-30 03:50] VITALS: BMI 20.9
[2023-06-30] MEDS: Lorazepam 1 MG TAB PO PRN (04:26)
[2023-06-30] MEDS: Acetaminophen 325 MG TAB PO PRN (04:26)
[2023-06-30] MEDS: Potassium Bicarbonate/Cit Ac 20 MEQ TAB PO SCH (04:28)
[2023-06-30] MEDS: Magnesium 2 GM/50 ML(in water) 2 GM in Premix 1 BAG IVPB SCH ×2 (04:33→08:04)
[2023-06-30] MEDS: Potassium Chloride 20 MEQ in Premix 1 BAG IVPB SCH (04:55)
[2023-06-30] MEDS: Potassium Chloride 20 MEQ TAB PO SCH ×2 (05:14→15:26)
[2023-06-30 05:21] LABS: #Monocytes 0.4 thou/uL (0.11-0.59); #Neutrophils 3.3 thou/uL (1.40-6.50); %Basophils 0.4 % (0.0-1.0); %Eosinophils 0.8 % (0.0-10.0); %Lymphocytes 28.5 % (21.0-51.0); %Monocytes 7.5 % (0.0-10.0); %Neutrophils 62.4 % (42.0-75.0); Hematocrit 31.4 % (42.0-52.0); Hemoglobin 11.1 g/dL (14.0-18.0); Mean Corpuscular HGB CONC 35.4 g/dL (32.0-36.0); Mean Corpuscular Hemoglobin 33.7 pg (27.0-31.0); Mean Corpuscular Volume 95.4 fl (78.0-98.0); Mean Platelet Volume 11.2 fL (7.4-10.4); RBC Distribution Width 14.1 % (11.5-14.5); Red Blood Cell (RBC) Count 3.29 mill/uL (4.70-6.10); White Blood Cell (WBC) Count 5.2 10x3/uL (4.8-10.8)
[2023-06-30] MEDS: Sodium Chloride 0.9% 1,000 ML IV SCH (05:42)
[2023-06-30 05:58] LABS: Anion Gap 13 mmol/L (10-20); BUN (Urea Nitrogen) 8 mg/dL (8.4-25.7); Calc. Creatinine Clearance 116 mL/min (70-130); Calcium 8.9 mg/dL (7.8-10.44); Carbon Dioxide 23 mmol/L (22-29); Chloride 99 mmol/L (98-107); Estimated GFR 106; Glucose 99 mg/dL (70-105); Magnesium 1.9 mg/dL (1.6-2.6); Sodium 132 mmol/L (136-145)
[2023-06-30 06:08] LABS: Platelet Count 84 10x3/uL (130-400)
[2023-06-30 06:09] LABS: Phosphorus Less than 1.0 mg/dL (2.3-4.7); Potassium 2.5 mmol/L (3.5-5.1)
[2023-06-30] MEDS: Lorazepam 1 MG TAB PO SCH (06:58)
[2023-06-30] MEDS: Enoxaparin 40 MG (0.4 mL) SYRINGE SC SCH (08:04)
[2023-06-30] MEDS: Sertraline 100 MG TAB PO SCH (08:04)
[2023-06-30] MEDS: Multivit, Therapeutic 1 TAB PO SCH (08:04)
[2023-06-30] MEDS: Folic Acid 1 MG TAB PO SCH (08:04)
[2023-06-30 11:23] VITALS: TEMP 99.2
[2023-06-30 13:11] LABS: Anion Gap 13 mmol/L (10-20); BUN (Urea Nitrogen) 9 mg/dL (8.4-25.7); Calc. Creatinine Clearance 119 mL/min (70-130); Calcium 8.6 mg/dL (7.8-10.44); Carbon Dioxide 27 mmol/L (22-29); Chloride 96 mmol/L (98-107); Estimated GFR 106; Glucose 94 mg/dL (70-105); Potassium 3.1 mmol/L (3.5-5.1); Sodium 133 mmol/L (136-145)
[2023-06-30] MEDS ORDERED: Thiamine HCl 200 MG/2 ML VIAL SLOW IVP SCH (21:00)
[2023-07-01] MEDS ORDERED: Lorazepam 1 MG TAB PO PRN (01:08)
[2023-07-02] MEDS ORDERED: Lorazepam 1 MG TAB PO PRN (01:08)
[2023-07-02] MEDS ORDERED: Lorazepam 0.5 MG TAB PO SCH (06:00)
[2023-07-02] MEDS ORDERED: Thiamine 100 MG TAB PO SCH (21:00)
[2023-07-03] MEDS ORDERED: Lorazepam 0.5 MG TAB PO PRN (01:08)
[2023-07-03] MEDS ORDERED: Thiamine 100 MG TAB PO SCH (09:00)
== END 2023-06-30 17:06 | disposition left against medical advice (07) | DRG 894 ==
LOC: ERS 19:39 → IMCU/EMU 06-30 00:39
PROVIDERS: ADMIT Student in an Organized Health Care Education/Training Program; ATTEND Internal Medicine
PROC: 4A00X4Z Measurement of Central Nervous Electrical Activity, External Approach (ICD-10-PCS; principal; 2023-06-30)
DX: F10.231 Alcohol dependence with withdrawal delirium (principal); E87.1 Hypo-osmolality and hyponatremia; M62.82 Rhabdomyolysis; E87.20 Acidosis, unspecified; R56.9 Unspecified convulsions; D69.6 Thrombocytopenia, unspecified; E83.42 Hypomagnesemia; E87.6 Hypokalemia; I10 Essential (primary) hypertension; Z88.0 Allergy status to penicillin; Z79.899 Other long term (current) drug therapy; Z90.49 Acquired absence of other specified parts of digestive tract; E83.39 Other disorders of phosphorus metabolism; F41.9 Anxiety disorder, unspecified; F32.A Depression, unspecified
CPT/HCPCS: 36415; 70450; 72125; 80048; 80053; 80306; 80307; 83690; 83735; 84100; 84146; 85025; 85610; 85730; 93005; 95711; 95819; J1200; J1650; J2060; J2765; J3411; J3475; J3480; J7050